=== PATIENT | female | born 1985 | race Caucasian/White ===

== ENCOUNTER 2019-12-12 17:46 | Emergency (ER) | payer OTHER, SELFPAY ==
--- NOTE | ~2019-12-12 | XR_ITS ---
EXAMINATION: XR hand RT min 3V INDICATION: Right hand pain TECHNIQUE: Three views of the right hand are obtained. COMPARISON: 06/28/2014 FINDINGS: There is no fracture, dislocation, or subluxation. The bones, soft tissues, and joint space s are normal. IMPRESSION: 1. No acute osseous abnormality. Reviewed, dictated and finalized at location A. PEMENT MATCHER
--- NOTE | 2019-12-12 17:53 | ED.UPPEXIN ---
HPI - Extremity Injury (Upper) General Chief Complaint: Extremity Injury, Upper Stated Complaint: R/hand injury Time Seen by Provider: 12/12/19 18:09 Source: patient and RN notes reviewed Mode of arrival: ambulatory Limitations: no limitations History of Present Illness HPI narrative: 34-year-Old female presents with concern for right hand injury. Reports she accidentally hit her hand on a wooden box prior to arrival. Reports pain near the fifth digit of the right hand. Denies any intervention for this pain. Denies bruising, reports mild swelling. MD complaint: injury to: right and hand Related Data Home Medications Medication Instructions Recorded Confirmed gabapentin 300 mg PO TID 08/30/19 08/30/19 aripiprazole 10 mg PO DAILY 09/14/19 09/14/19 duloxetine 20 mg PO DAILY 09/14/19 09/14/19 lamotrigine 75 mg PO DAILY 09/14/19 09/14/19 Allergies Allergy/AdvReac Type Severity Reaction Status Date / Time latex Allergy Unknown Unknown Verified 11/07/19 22:35 Contrast Media Allergy Intermediate Unknown Uncoded 11/07/19 22:35 Dairy Allergy Mild Unknown Uncoded 11/07/19 22:35 Review of Systems Review of Systems: Narrative: SKIN: Denies redness or bruising, reports swelling MUSCULOSKELETAL: Reports right hand pain NEUROLOGIC: Denies numbness, weakness All systems reviewed & are unremarkable except as noted in HPI and below PMFSH Social History Social History Gender identity (if verbalized by the patient): Female Comments At time of signature, agree with nursing past medical, surgical, social and family history. There is no relevant family history pertinent to the presenting complaint Exam Narrative: Exam Narrative: GENERAL: Well-appearing, well-nourished, and in no acute distress. HEAD: Normocephalic, atraumatic. EYES: PERRLA, conjunctivae clear NECK: Supple. CHEST: Speaks in full sentences. No respiratory distress. HEART: Regular rate and rhythm. Normal and equal peripheral pulses. EXTREMITIES: No cyanosis. Very mild superficial edema noted to the fifth digit of the right hand, tenderness to the fifth digit and below the digit of the right hand. Skin intact. Normal digital cascade with flexion of fingers, median, ulnar and radial nerve intact. Normal sensation of each side of finger. Can perform 'okay' sign, 'cross over finger test of index and middle fingers' and 'thumbs up' sign. No scissoring. 5/5 strength in digits 1, 2, and 3; 3/5 strength noted in digits 4 and 5. Normal thumb opposition. Good capillary refill and radial pulse. Wrist and hand ROM is normal. Decreased flexion in digits 3 and 4 SKIN: Warm, dry, no rash. NEURO: Alert and oriented x3. PSYCH: Normal mood and affect Course Course Emergency Course: Patient is aware of diagnosis, understands and agrees to treatment plan. Anticipatory guidance given. Patient agrees to follow-up as directed and is aware of reasons to seek care at the emergency department. Portions of this record may have been created with voice recognition software Vital Signs Vital signs: Vital Signs Temperature 98.3 F 12/12/19 17:59 Pulse Rate 79 12/12/19 17:59 Respiratory Rate 20 12/12/19 17:59 Blood Pressure 145/93 H 12/12/19 17:59 Pulse Oximetry 100 12/12/19 17:59 Temperature 98.3 F 12/12/19 17:59 Pulse Rate 79 12/12/19 17:59 Respiratory Rate 20 12/12/19 17:59 Blood Pressure 145/93 H 12/12/19 17:59 Pulse Oximetry 100 12/12/19 17:59 Reviewed. Patient has been instructed to follow up with her primary care provider within the next week regarding her elevated blood pressure today. MDM - Extremity Injury (Upper) MDM Narrative Medical decision making narrative: Patients injury and pain is consistent with musculoskeletal etiology. No signs of neurological or vascular compromise on exam. Compartments and tissues are soft without signs of compartment syndrome. Patient was instructed to seek fu
[2019-12-12 17:59] VITALS: BP 145/93; PULSE 79; RESP 20; TEMP 36.8; O2SAT 100
== END 2019-12-12 18:21 | disposition home or self-care (01) ==
PROVIDERS: Emergency Provider Nurse Practitioner
DX: S69.91XA Unspecified injury of right wrist, hand and finger(s), initial encounter (principal); W22.8XXA Striking against or struck by other objects, initial encounter; E03.9 Hypothyroidism, unspecified; G40.909 Epilepsy, unspecified, not intractable, without status epilepticus; F31.9 Bipolar disorder, unspecified
CPT/HCPCS: 73130; 99213; G0463

== ENCOUNTER 2020-01-19 14:14 | Emergency (ER) | payer OTHER, SELFPAY ==
[2020-01-19 14:26] VITALS: BP 104/69; PULSE 98; RESP 16; TEMP 37; O2SAT 100
--- NOTE | 2020-01-19 14:41 | ED.FEMALEGU ---
HPI - Female Genitourinary General Chief complaint: Urogenital-Female Stated complaint: UTI Time Seen by Provider: 01/19/20 14:41 Source: patient and RN notes reviewed History of Present Illness HPI Narrative: Patient is a 34-year-old female that presents the urgent care with complaints of a possible UTI. Patient states that symptoms started a few days ago with foul odor, urgency, frequency. Patient states that these are her typical symptoms for urinary tract infection . Patient denies any abdominal pain, dysuria, nausea, vomiting, fever. No other acute complaints. No acute distress noted. Patient read the plan of care. Related Data Allergies Allergy/AdvReac Type Severity Reaction Status Date / Time lactase Allergy Unknown Upset Verified 02/27/19 09:39 stomach latex Allergy Unknown Rash Verified 02/27/19 09:38 Review of Systems Review of Systems: Narrative: CONSTITUTIONAL: Denies fever, chills, or sweats. EYES: Denies visual changes, redness, or discharge. ENT: Denies rhinorrhea, congestion, sore throat, or otalgia. CARDIOVASCULAR: Denies chest pain, palpitations, or edema. RESPIRATORY: Denies cough or dyspnea. GASTROINTESTINAL: Denies abdominal pain, nausea, vomiting, or diarrhea. GENITOURINARY: Reports of urinary urgency and frequency with foul odor SKIN: Denies rash or itching. MUSCULOSKELETAL: Denies back pain, joint pain, or myalgia. NEUROLOGIC: Denies headache, numbness, or weakness. All other systems reviewed are negative, except as documented in HPI. REPLACED BY [facility] Family History Family History (Updated 02/27/19 @ 10:01 by DOCTOR UNKNOWN) Grandparent Diabetes mellitus Family history of blood dyscrasia Cerebrovascular accident Social History Social History Smoking status: Never smoker Second hand tobacco smoke exposure: No Alcohol intake: current Gender identity (if verbalized by the patient): Female Comments At the time of my signature, I reviewed and agree with the nursing past medical, surgical, social, and family history. There is no relevant family history pertinent to the patient complaint. Exam Narrative: Exam Narrative: GENERAL: This is a well-nourished, well-developed patient, in no apparent distress. HEAD: normocephalic, atraumatic. EYES: PERRL. Sclera clear/white. Vision is grossly intact. EARS: External ears normal NOSE: External nose normal with no obvious nasal discharge THROAT: Mucous membranes moist NECK: Neck supple CARDIOVASCULAR: Regular rate and rhythm without murmurs, gallops, or rubs. RESPIRATORY: Clear to auscultation. Breath sounds equal bilaterally. No wheezes, rales, or rhonchi. GASTROINTESTINAL: Abdomen soft, non-tender, nondistended. SKIN: warm, intact with no suspicious lesions or rash, good texture and turgor. NEURO: awake, alert, and oriented to person, place and time. There were no obvious focal neurologic abnormalities. EXTREMITIES: No clubbing, cyanosis, or edema. BACK: Negative bilateral CVA tenderness Course Vital Signs Vital signs: Vital Signs Temperature 98.6 F 01/19/20 14:26 Pulse Rate 98 01/19/20 14:26 Respiratory Rate 16 01/19/20 14:26 Blood Pressure 104/69 01/19/20 14:26 Pulse Oximetry 100 01/19/20 14:26 Temperature 98.6 F 01/19/20 14:26 Pulse Rate 98 01/19/20 14:26 Respiratory Rate 16 01/19/20 14:26 Blood Pressure 104/69 01/19/20 14:26 Pulse Oximetry 100 01/19/20 14:26 Reviewed MDM - Female Genitourinary MDM Narrative Medical decision making narrative: Reviewed UA results with the patient. She is aware that her urine analysis was positive for indicative UTI. Advised the patient to complete antibiotic regimen as prescribed. Make sure you are eating and drinking with the medication. Use Tylenol only as needed for pain. Increase water intake and avoid sugary and caffeinated drinks. Follow-up with PCP as necessary or for any worsening symptoms. Differential Diagnosis Differential diagnosis: Likely urina
== END 2020-01-19 14:56 | disposition home or self-care (01) ==
PROVIDERS: Emergency Provider Nurse Practitioner Family
DX: N39.0 Urinary tract infection, site not specified (principal)
CPT/HCPCS: 81003; 87077; 87086; 87088; 87186; 99213; G0463

== ENCOUNTER 2020-04-18 20:44 | Emergency (ER) | payer OTHER, SELFPAY ==
[2020-04-18 20:46] VITALS: BP 139/93; PULSE 93; RESP 18; TEMP 36.6; O2SAT 100
--- NOTE | 2020-04-18 21:36 | ED.HA ---
HPI - Headache General Chief Complaint: Headache Stated Complaint: migraine Time Seen by Provider: 04/18/20 21:20 Source: patient Mode of arrival: ambulatory Limitations: no limitations History of Present Illness HPI Narrative: This patient is a 35 year old female with history of migraine headaches who presents for treatment of her headache. She has had frontal throbbing headache for 4 days. She thought her headache had improved yesterday but it became worse today. She has associated light sensitivity with nausea. She denies no fever or chills. She has been taken tramadol and tylenol for her pain. This headache is typical for her migraines. MD elicited complaint: migraine Pertinent past history: migraines Related Data Allergies Allergy/AdvReac Type Severity Reaction Status Date / Time lactase Allergy Unknown Upset Verified 02/27/19 09:39 stomach latex Allergy Unknown Rash Verified 02/27/19 09:38 Review of Systems Review of Systems: All systems reviewed & are unremarkable except as noted in HPI and below Constitutional: Constitutional: Denies chills and Denies fever(s) Eyes: Eyes: Reports photophobia ENT: Denies dizziness and Denies nasal congestion Gastrointestinal: Gastrointestinal: Denies abdominal pain Neurologic: Denies vertigo, Denies syncope, Reports headache(s) and Denies focal weakness PMFSH Past Medical History Medical History (Updated 04/19/20 @ 00:00 by Constantine Rivera) Cataract Migraine Surgical History Surgical History (Updated 04/19/20 @ 05:20 by Gisel Roy MD) Hx of eye surgery Family History Family History (Updated 02/27/19 @ 10:01 by DOCTOR UNKNOWN) Grandparent Diabetes mellitus Family history of blood dyscrasia Cerebrovascular accident Social History Social History Smoking status: Never smoker Second hand tobacco smoke exposure: No Alcohol intake: current Gender identity (if verbalized by the patient): Female Exam Narrative: Exam Narrative: GENERAL: Well-appearing, well-nourished, and in no acute distress. HEAD: Normocephalic, atraumatic EYES: PERRLA and EOMI, conjunctiva clear without discharge EARS: TM's clear bilaterally without erythema or dullness NOSE: Nares clear, no rhinorrhea or epistaxis THROAT:Mucous membranes moist, Oropharynx normal without erythema, exudate, peritonsillar swelling or fluctuance NECK: Supple, without lymphadenopathy or mass RESPIRATORY: No respiratory distress, Airway patent, Respirations non-labored, Clear to auscultation without rales, rhonchi or wheeze HEART: Regular rate and rhythm. No murmur heard. Normal peripheral pulses. ABDOMEN: Soft, nontender, nondistended, normal active bowel sounds. No masses. No rebound or guarding, No organomegaly. EXTREMITIES: No edema, normal strength with full range of motion. SKIN: Warm, dry, normal color without rash NEURO: Alert and oriented x3. CN 2-12 grossly intact. No focal deficits. PSYCH: Normal mood and affect. Course Reevaluation(s) Reevaluation #1: Patient states she feels better and she is ready to go home to bed. Date: 04/18/20 Time: 22:51 Vital Signs Vital signs: Vital Signs Temperature 97.8 F 04/18/20 20:46 Pulse Rate 93 04/18/20 20:46 Respiratory Rate 18 04/18/20 20:46 Blood Pressure 139/93 H 04/18/20 20:46 Pulse Oximetry 100 04/18/20 20:46 Temperature 98.6 F 04/18/20 22:54 Pulse Rate 67 04/18/20 22:54 Respiratory Rate 19 04/18/20 22:54 Blood Pressure 115/74 04/18/20 22:54 Pulse Oximetry 100 04/18/20 22:54 Discharge Plan Discharge Clinical Impression: Migraine Patient Disposition: Home, Self-Care Condition: Stable Instructions: Antibiotic Form, Migraine Headache (ED), Acute Headache (ED) Prescriptions: New [id number] [Fioricet] 50-300-40 mg capsule 1 cap PO Q6H PRN (Reason: pain) Qty: 10 RF: 0 No Action nitrofurantoin monohyd/m-cryst [Macrobid] 100
[2020-04-18 21:44] VITALS: BP 114/70; PULSE 63; RESP 19; O2SAT 100
[2020-04-18] MEDS: METOCLOPRAMIDE HCL INJ 10 MG/2 ML VIAL IV PUSH (21:45)
[2020-04-18] MEDS: KETOROLAC 30 MG/ML VIAL (*BKC) IV PUSH (21:45)
[2020-04-18] MEDS: LACTATED RINGERS 1,000 ML 999 ML IV CONT (21:45)
[2020-04-18 22:25] VITALS: BP 133/64; PULSE 67; RESP 18; O2SAT 100
[2020-04-18 22:54] VITALS: BP 115/74; PULSE 67; RESP 19; TEMP 37; O2SAT 100
== END 2020-04-18 22:55 | disposition home or self-care (01) ==
PROVIDERS: Emergency Provider General Practice
DX: G43.909 Migraine, unspecified, not intractable, without status migrainosus (principal)
CPT/HCPCS: 96361; 96374; 96375; 99284; J1200; J1885; J2765; J7120

== ENCOUNTER 2020-05-16 07:13 | Emergency (ER) | payer OTHER, SELFPAY ==
--- NOTE | ~2020-05-16 | XR_ITS ---
EXAMINATION: XR chest 1V portable INDICATION: Cough and shortness of breath TECHNIQUE: Portable AP chest at 0754 hours COMPARISON: 02/12/2018 FINDINGS: The lungs are free of acute opacities. There is no pleural effusion or pneumothorax. The ca rdiomediastinal silhouette is normal. The visualized bones and soft tissues are unremarkable. Cholecy stectomy clips are noted in the right upper quadrant. IMPRESSION: 1. No acute cardiopulmonary abnormality. Reviewed, dictated and finalized at location A.
[2020-05-16 07:18] VITALS: BP 135/85; PULSE 115; RESP 24; TEMP 36.4; O2SAT 98
[2020-05-16 07:21] VITALS: PULSE 116; O2SAT 98
--- NOTE | 2020-05-16 07:30 | ED.SOB ---
HPI - SOB/Dyspnea General Chief Complaint: Shortness of Breath/Dyspnea Stated Complaint: SOB Time Seen by Provider: 05/16/20 07:29 Source: patient Mode of arrival: ambulatory Limitations: no limitations History of Present Illness HPI Narrative: Patient is a 35-year-old female who presents for evaluation of shortness of breath. Patient reports a history of asthma, states she has been using her albuterol inhaler without much improvement in her symptoms. She states she has had worsening shortness of breath over the past day, but especially worse this morning. Patient states she has had a productive cough which is atypical from a usual asthma exacerbation. She denies fever. She denies any chest pain, she reports that her muscles feel a bit sore from coughing. She denies leg swelling or pain. No recent sick contacts. No recent travel. Related Data Home Medications Medication Instructions Recorded Confirmed albuterol sulfate INHALATION 05/16/20 Allergies Allergy/AdvReac Type Severity Reaction Status Date / Time lactase Allergy Unknown Upset Verified 05/16/20 07:23 stomach latex Allergy Unknown Rash Verified 05/16/20 07:23 Iodinated Contrast Media AdvReac Nausea and Verified 05/16/20 07:23 Vomiting Review of Systems Review of Systems: Narrative: CONSTITUTIONAL: Denies fever CARDIOVASCULAR: Denies chest pain RESPIRATORY: Reports cough and shortness of breath GASTROINTESTINAL: Denies abdominal pain SKIN: Denies rash MUSCULOSKELETAL: Denies back pain NEUROLOGIC: Denies headache PMFSH Past Medical History Medical History Asthma Cataract Migraine Surgical History Surgical History Hx of eye surgery Family History Family History (Updated 02/27/19 @ 10:01 by DOCTOR UNKNOWN) Grandparent Diabetes mellitus Family history of blood dyscrasia Cerebrovascular accident Social History Social History (Updated 05/16/20 @ 07:39 by Ariadna Jack MD) Smoking status: Current every day smoker Tobacco type: cigarettes Second hand tobacco smoke exposure: No Alcohol intake: current Gender identity (if verbalized by the patient): Female Exam Narrative: Exam Narrative: GENERAL: Awake, alert, conversant HEAD: Normocephalic, atraumatic. EYES: PERRLA and EOMI. ENT: Nares clear, no rhinorrhea or epistaxis. Mucous membranes moist. NECK: Supple. CHEST: Tachypnea, mild to moderate respiratory distress, no hypoxemia, mild use of abdominal accessory muscles to breathe, coarse breath sounds bilaterally, expiratory wheezing bilaterally HEART: Tachycardic rate, sinus rhythm ABDOMEN:Non distended, non tender EXTREMITIES: Normal range of motion. No edema. SKIN: Warm, dry, no rash. NEURO:No focal deficits. Alert and oriented x3 Course Vital Signs Vital signs: Vital Signs Temperature 36.4 C L 05/16/20 07:18 Pulse Rate 115 H 05/16/20 07:18 Respiratory Rate 24 H 05/16/20 07:18 Blood Pressure 135/85 05/16/20 07:18 Pulse Oximetry 98 05/16/20 07:18 Temperature 36.4 C L 05/16/20 07:18 Pulse Rate 116 H 05/16/20 09:25 Respiratory Rate 19 05/16/20 09:25 Blood Pressure 101/65 05/16/20 09:25 Pulse Oximetry 100 05/16/20 09:25 MDM - SOB/Dyspnea MDM Narrative Medical decision making narrative: Patient presented for evaluation of shortness of breath. At the time of assessment, patient in mild to moderate respiratory distress, tachycardic, tachypneic, wheezing. IV access obtained, labs are drawn. Given patient's history of asthma, this does seem most consistent with an asthma exacerbation. Wanted to ensure no community-acquired pneumonia or COVID type features, thus obtain chest x-ray which showed no acute cardiopulmonary abnormality, no consolidations or infiltrates. Patient was given IV fluids,continuous DuoNeb treatment, magnesium, steroids and had much improvement in
[2020-05-16] MEDS: ALBUTEROL SULFATE NEB 2.5 MG/0.5 ML INH 20 MG INHALATION (07:51)
[2020-05-16] MEDS: IPRATROPIUM BR 0.02% INH SOLN 0.5 MG/2.5 ML VIAL 2 MG INHALATION (07:51)
[2020-05-16 07:56] VITALS: PULSE 103; RESP 17
[2020-05-16] MEDS: MAGNESIUM SULF 2 GM/WATER 50ML 2 GM/50 ML BAG IVPB (08:01)
[2020-05-16] MEDS: methylPREDNISolone SOD SUCC 125 MG VIAL IV PUSH (08:01)
[2020-05-16] MEDS: SODIUM CHLORIDE 0.9% IV 1,000 ML 999 ML IV CONT (08:01)
[2020-05-16 08:39] VITALS: BP 109/70; PULSE 105; RESP 19; O2SAT 100
[2020-05-16 08:50] LABS: Basophils Absolute Auto 0.1 K/mm3 (0.0-0.1); Basophils Percent Auto 0.7 % (0.2-1.2); Eosinophils Absolute Auto 0.6 K/mm3 (0-0.3); Eosinophils Percent Auto 8.2 % (0-4.4); Hematocrit 45.9 % (37.0-47.0); Hemoglobin 15.6 g/dL (12.0-15.0); Immature Granulocyte Absolute 0.02 K/mm3 (0.00-0.031); Immature Granulocyte Percent A 0.3 % (0-0.5); Lymphocytes Absolute Auto 1.57 K/mm3 (0.9-3.2); Lymphocytes Percent Auto 21.7 % (18.3-44.2); Mean Corpuscular Hemoglobin 32.4 pg (26-34); Mean Corpuscular Volume 95.2 fl (80-100); Mean Platelet Volume 9.8 fl (7.4-10.4); Monocytes Absolute Auto 1.5 K/mm3 (0.1-0.6); Monocytes Percent Auto 20.7 % (2.6-8.5); Neutrophils Absolute Auto 3.5 K/mm3 (1.3-6.7); Neutrophils Percent Auto 48.4 % (45.5-73.1); Platelet Count Result 374 k/mm3 (150-375); Red Blood Count 4.82 M/mm3 (4.2-5.4); Red Cell Distribution Width 13.9 % (11.5-14.5); White Blood Count 7.2 K/mm3 (4.5-10.0)
[2020-05-16 09:04] LABS: Blood Urea Nitrogen 16 mg/dL (7-17); Calcium 8.9 mg/dL (8.4-10.2); Carbon Dioxide 24 mmol/L (22-30); Chloride 103 mmol/L (98-107); Estimated CRCL calculation 84 ml/min; Estimated Glomerular Filt Rate > 60; Glucose 86 mg/dL (65-105); Potassium 3.9 mmol/L (3.4-5.0); Sodium 136 mmol/L (137-145)
[2020-05-16 09:10] VITALS: PULSE 111; RESP 22
[2020-05-16 09:25] VITALS: BP 101/65; PULSE 116; RESP 19; O2SAT 100
== END 2020-05-16 10:17 | disposition home or self-care (01) ==
PROVIDERS: Emergency Provider Emergency Medicine
DX: J45.901 Unspecified asthma with (acute) exacerbation (principal); F17.210 Nicotine dependence, cigarettes, uncomplicated
CPT/HCPCS: 36415; 71045; 80048; 85025; 94640; 96365; 96375; 99284; J2930; J3475; J7030

== ENCOUNTER 2020-12-15 14:49 | Emergency (ER) | payer OTHER, SELFPAY ==
--- NOTE | 2020-12-15 14:58 | ED.SKABFB ---
HPI - Skin/Abscess/Foreign Bdy General Chief complaint: Skin/Abscess/Foreign Body Stated complaint: cyst on right arm Time Seen by Provider: 12/15/20 14:59 Source: patient and RN notes reviewed Mode of arrival: ambulatory Limitations: no limitations History of Present Illness HPI narrative: 35-year-old female presents concern for an abscess in her right axilla. Reports that area has been there for approximately 1 year, has recently gotten larger, tenderness started to drain. Denies any history of similar instance like this in the past, denies body aches, chills, sweats, fever. Reports the pain is starting to migrate down her right upper arm. MD complaint: abscess/boil Related Data Allergies Allergy/AdvReac Type Severity Reaction Status Date / Time latex Allergy Unknown Unknown Verified 11/07/19 22:35 Contrast Media Allergy Intermediate Unknown Uncoded 11/07/19 22:35 Dairy Allergy Mild Unknown Uncoded 11/07/19 22:35 Review of Systems Review of Systems: Narrative: CONSTITUTIONAL: Denies malaise, chills, sweats, or fever. CARDIOVASCULAR: Denies chest pain, palpitations, or edema. RESPIRATORY: Denies dyspnea. GASTROINTESTINAL: Denies nausea, vomiting, diarrhea SKIN: Reports abscess in the right axilla MUSCULOSKELETAL: Denies myalgia. NEUROLOGIC: Denies numbness, weakness. All systems reviewed & are unremarkable except as noted in HPI and below PMFSH Past Medical History Medical History (Updated 12/15/20 @ 15:02 by Charlene Bajwa NP) PID (acute pelvic inflammatory disease) Trichomonas contact, treated Surgical History Surgical History History of hysterectomy Social History Social History Gender identity (if verbalized by the patient): Female Comments At time of signature, agree with nursing past medical, surgical, social and family history. There is no relevant family history pertinent to the presenting complaint Exam Narrative: Exam Narrative: GENERAL: Well-appearing, well-nourished, and in no acute distress. HEAD: Normocephalic EYES: PERRLA, conjunctivae clear ENT: Mucous membranes moist. NECK: Supple. No lymphadenopathy. CHEST: No respiratory distress.Speaks in full sentences. HEART: Regular rate and rhythm. Normal peripheral pulses. EXTREMITIES: Grossly normal range of motion, no edema, gross normal strength and sensation. SKIN: Warm, dry, no rash. 2 cm diameter palpable, fluctuant abscess noted in the right axilla not surrounded by erythema, edema or induration. Small amount of drainage noted. NEURO: Alert and oriented x3. PSYCH: Normal mood and affect Course Course Emergency Course: Patient is aware of diagnosis, understands and agrees to treatment plan. Anticipatory guidance given. Patient agrees to follow-up as directed and is aware of reasons to seek care at the emergency department. Portions of this record may have been created with voice recognition software Vital Signs Vital signs: Vital Signs Temperature 98.2 F 12/15/20 14:59 Pulse Rate 102 H 12/15/20 14:59 Respiratory Rate 18 12/15/20 14:59 Blood Pressure 116/77 12/15/20 14:59 Pulse Oximetry 100 12/15/20 14:59 Temperature 98.2 F 12/15/20 14:59 Pulse Rate 102 H 12/15/20 14:59 Respiratory Rate 18 12/15/20 14:59 Blood Pressure 116/77 12/15/20 14:59 Pulse Oximetry 100 12/15/20 14:59 Reviewed. Procedures Abscess I/D upper extremity: Date of Incision: 12/15/20 Time of Incision: 15:06 Side (if applicable): right Local Anesthetic: lidocaine 1% Amount of anesthesia used (mL): 2 Technique: incised with #11 blade Amount of fluid expressed (mL): 3 Packing used?: none I&D Results: Pus MDM - Skin/Abscess/Foreign Bdy MDM Narrative Medical decision making narrative: Verbal consent were obtained. The indication for the procedure was clinical suspi
[2020-12-15 14:59] VITALS: BP 116/77; PULSE 102; RESP 18; TEMP 36.8; O2SAT 100
--- NOTE | 2020-12-15 15:10 | PC.NURSE ---
I & D to right axillia by Charlene Bajwa [employer]ZING END BANDER
== END 2020-12-15 15:25 | disposition home or self-care (01) ==
PROVIDERS: Emergency Provider Nurse Practitioner
DX: L02.411 Cutaneous abscess of right axilla (principal); E03.9 Hypothyroidism, unspecified
CPT/HCPCS: 10060; 87075; 99213; G0463

== ENCOUNTER 2021-03-18 08:57 | Outpatient (CLI) | payer OTHER, SELFPAY ==
--- NOTE | 2021-03-18 11:30 | NEURO_ITS ---
Impression: # Complains of numbness of both hands. # No Carpal Tunnel Syndrome or ulnar neuropathy. # Normal nerve conduction study. # Normal needle/EMG exam. Nerve Conduction Studies Anti Sensory Summary Table Stim Site NR Peak (ms) P-T Amp (?V) Site1 Site2 Delta-P (ms) Dist (cm) Shoaib (m/s) Left Median Anti Sensory (2-3nd Digit) Wrist 2.8 56.9 Wrist 2-3nd Digit 2.8 14.0 50 Wrist 2.9 59.9 Wrist 2-3nd Digit 2.8 14.0 50 Right Median Anti Sensory (2-3nd Digit) Wrist 2.9 55.6 Wrist 2-3nd Digit 2.9 14.0 48 Wrist 2.7 58.4 Wrist 2-3nd Digit 2.9 14.0 48 Left Radial Anti Sensory (Base 1st Digit) Wrist 1.8 43.4 Wrist Base 1st Digit 1.8 0.0 Right Radial Anti Sensory (Base 1st Digit) Wrist 1.7 48.8 Wrist Base 1st Digit 1.7 0.0 Left Ulnar Anti Sensory (5th Digit) Wrist 2.4 46.4 Wrist 5th Digit 2.4 14.0 58 Right Ulnar Anti Sensory (5th Digit) Wrist 2.2 76.8 Wrist 5th Digit 2.2 14.0 64 Motor Summary Table Stim Site NR Onset (ms) O-P Amp (mV) Site1 Site2 Delta-0 (ms) Dist (cm) Shoaib (m/s) Left Median Motor (Abd Poll Brev) Wrist 2.7 1.3 Elbow Wrist 4.4 26.0 59 Elbow 7.1 4.0 Right Median Motor (Abd Poll Brev) Wrist 3.0 6.1 Elbow Wrist 4.5 25.0 56 Elbow 7.5 2.5 Left Ulnar Motor (Abd Dig Minimi) Wrist 2.4 7.4 A Elbow Wrist 5.3 27.0 51 A Elbow 7.7 5.9 B Elbow Wrist 3.8 20.0 53 B Elbow 6.2 6.7 Right Ulnar Motor (Abd Dig Minimi) Wrist 2.5 8.1 A Elbow Wrist 4.7 26.0 55 A Elbow 7.2 6.7 F Wave Studies NR F-Lat (ms) L-R F-Lat (ms) Left Median (Mrkrs) (Abd Poll Brev) 24.80 0.47 Right Median (Mrkrs) (Abd Poll Brev) 25.26 0.47 Left Ulnar (Mrkrs) (Abd Dig Min) 25.28 0.55 Right Ulnar (Mrkrs) (Abd Dig Min) 24.73 0.55 EMG Side Muscle Nerve Root Ins Act Fibs Amp Dur Recrt Comment Right 1stDorInt Ulnar C8-T1 Nml Nml Nml Nml Nml Right Ext Indicis Radial (Post Int) C7-8 Nml Nml Nml Nml Nml Right Ext Digitorum Radial (Post Int) C7-8 Nml Nml Nml Nml Nml Right BrachioRad Radial C5-6 Nml Nml Nml Nml Nml Right PronatorTeres Median C6-7 Nml Nml Nml Nml Nml Right Abd Poll Brev Median C8-T1 Nml Nml Nml Nml Nml Left 1stDorInt Ulnar C8-T1 Nml Nml Nml Nml Nml Left Ext Indicis Radial (Post Int) C7-8 Nml Nml Nml Nml Nml Left Ext Digitorum Radial (Post Int) C7-8 Nml Nml Nml Nml Nml Left BrachioRad Radial C5-6 Nml Nml Nml Nml Nml Left PronatorTeres Median C6-7 Nml Nml Nml Nml Nml Left Abd Poll Brev Median C8-T1 Nml Nml Nml Nml Nml MTDD
== END 2021-03-18 08:58 | disposition home or self-care (01) ==
PROVIDERS: Visit Provider Plastic Surgery
DX: R20.0 Anesthesia of skin (principal); R53.83 Other fatigue; M79.632 Pain in left forearm; M79.631 Pain in right forearm
CPT/HCPCS: 95886; 95911

== ENCOUNTER 2021-05-13 17:26 | Emergency (ER) | payer OTHER, SELFPAY ==
--- NOTE | ~2021-05-13 | CT_ITS ---
EXAMINATION: CT brain wo con DATE: 05/13/2021 19:03 INDICATION: 3 episodes of seizure. Fall. TECHNIQUE: Computed tomography (CT) of the head was performed without intravenous contrast. Sagittal and coronal reconstructions were performed. The mA was adjusted according to patient size. Iterative reconstruction technique was employed. The dose-length product was 1210.67 mGy-cm. COMPARISON: head CT dated 11/07/2019 FINDINGS: No fracture. No acute intracranial hemorrhage, acute infarction or abnormal extra axial fluid collect ion. Ventricles are normal and symmetric. No mass/mass effect. The orbits, paranasal sinuses and mast oid air cells are normal. IMPRESSION: 1. Normal head CT. No fracture or acute intracranial process. Reviewed, dictated and finalized at location A.
--- NOTE | ~2021-05-13 | CT_ITS ---
EXAMINATION: CT lumbar spine wo con DATE: 05/13/2021 19:03 INDICATION: Low back pain post fall TECHNIQUE: Computed tomography (CT) of the lumbar spine was performed without intravenous contrast. A utomated exposure control and iterative reconstruction technique were employed. The dose-length produ ct was 1210.67 mGy-cm. COMPARISON: None FINDINGS: Minimal lower lumbar levocurvature. Alignment is normal. Vertebral body heights are normal. No fractu re. Mild right-sided disc height loss at L4-L5. Mild disc bulges at L3-L4, L4-L5 and L5-S1 result in mild central canal stenosis at L4-L5 and minimal stenosis at L3-L4 and L5-S1. Severe facet osteoarthr itis on the right at L4-L5. Minimal to mild facet osteoarthritis at the remaining lumbar levels on moreno th the left and right. Mild bilateral neural foraminal stenosis at L4-L5. L4 bone island. Cholecystec jermaine clips at the gallbladder fossa. Paravertebral soft tissues are unremarkable. IMPRESSION: 1. Mild lumbar spondylosis. No acute osseous abnormality. Reviewed, dictated and finalized at location A.
--- NOTE | ~2021-05-13 | CT_ITS ---
EXAMINATION: CT facial bones wo con DATE: 05/13/2021 19:03 INDICATION: Fall with facial injury and right periorbital bruising TECHNIQUE: Computed tomography (CT) of the facial bones and maxillofacial region was performed withou t intravenous contrast. Coronal reconstructions were obtained. Automated exposure control and iterati ve reconstruction technique were employed. The dose-length product was 1210.67 mGy-cm. COMPARISON: None. FINDINGS: No maxillofacial fractures. Specifically the kay of the orbits and paranasal sinuses, the mandible, zygomatic arches and pterygoid plates are intact. Temporomandibular joints are in normal alignment. Suggestion of right intraocular lens replacement which would be atypical for age. Correlate with clin ical/surgical history. Orbits are otherwise normal. Mild mucosal thickening along the right frontoeth moidal recess visualized portions of the mastoid air cells and middle ear cavities are clear. Maxillo facial soft tissues are unremarkable. IMPRESSION: 1. No maxillofacial fractures. Reviewed, dictated and finalized at location A.
[2021-05-13 17:25] VITALS: BP 160/118; PULSE 101; RESP 24; TEMP 36.8; O2SAT 98
--- NOTE | 2021-05-13 17:32 | ECG_ITS ---
Measurements Intervals Mccune Rate: 106 P: 66 FL: 115 QRS: 54 QRSD: 86 T: 61 QT: 344 QTc: 457 Interpretive Statements SINUS TACHYCARDIA WITH SHORT FL INTERVAL BASELINE ARTIFACT- II, III, AVR, AVL, AVF, V1, V3-V6 ABNORMAL ECG Electronically Signed On 05-13-2021 20:17:23 CDT by Herman Mast D.O.
[2021-05-13 17:33] VITALS: PULSE 111
--- NOTE | 2021-05-13 18:04 | ED.SEIZURE ---
HPI - Seizure General Chief Complaint: Seizure Stated Complaint: Seizures Time Seen by Provider: 05/13/21 17:53 Source: RN notes reviewed History of Present Illness HPI Narrative: Patient presents emergency department from home via EMS for seizures. Patient states that she had a tonic-clonic seizure at home and fell out of bed. She states she struck the right side of her face and her head as well as pain in her lower back from falling out of bed. She states she has a history of seizure disorders but does not currently follow with a neurologist and does not have any regular seizure medicine she states she is had seizures for over the past 3 and half years and is had more seizures than she can count. She states at one point she is on gabapentin but no longer is on any medication she denies any recent illness denies any fevers or chills, chest pain shortness of breath or any other symptoms Seizure History: Yes Related Data Allergies Allergy/AdvReac Type Severity Reaction Status Date / Time lactase Allergy Unknown Upset Verified 05/13/21 17:34 stomach latex Allergy Unknown Unknown Verified 05/13/21 17:34 Iodinated Contrast Media AdvReac Nausea and Verified 05/13/21 17:34 Vomiting Contrast Media Allergy Intermediate Unknown Uncoded 05/13/21 17:34 Dairy Allergy Mild Unknown Uncoded 05/13/21 17:34 Review of Systems Review of Systems: Narrative: Gen.: Denies fevers or chills Eyes: Denies eye pain or visual change ENT: Denies congestion Respiratory: Denies shortness of breath or cough CV: Denies chest pain or palpitations GI: Denies abdominal pain nausea, emesis or diarrhea denies burning, urgency, frequency or hematuria Musculoskeletal: See HPI Neuro: Reports seizure Skin: Denies rash Except as documented, all other systems reviewed and negative [facility] Past Medical History Medical History (Updated 05/13/21 @ 21:15 by Rodrigo Solorzano DO) Asthma Cataract Migraine PID (acute pelvic inflammatory disease) Seizure disorder Trichomonas contact, treated Surgical History Surgical History (System 12/25/20 @ 11:19 by Anisha Shah) History of hysterectomy Hx of eye surgery Family History Family History (System 12/25/20 @ 11:19 by Anisha Shah) Grandparent Diabetes mellitus Family history of blood dyscrasia Cerebrovascular accident Social History Social History Smoking status: Current every day smoker Tobacco type: cigarettes Second hand tobacco smoke exposure: No Alcohol intake: current Gender identity (if verbalized by the patient): Female Exam Narrative: Exam Narrative: APPEARANCE: No acute distress, nontoxic, resting in bed EYES: PERRL, EOMI HEENT: Normocephalic, tender palpation over the right cheek and right side of the head nares patent or mucosa moist Neck: Supple no midline tenderness palpation full range of motion without pain RESPIRATORY: No respiratory distress Clear to auscultation bilaterally with no rhonchi wheezing or rales. CARDIOVASCULAR: Regular rate and rhythm without murmurs rubs or gallops. ABDOMINAL: Soft, nontender, nondistended, no rebound or guarding MUSCULOSKELETAl: Moves all extremities. No clubbing, cyanosis or edema. Back: No midline thoracic lumbar consult patient tender palpation bilateral paravertebral muscles L3-5 NEURO: Awake and alert x 4. Following commands, speech normal, no focal deficits SKIN:: Warm, dry. No rashes lesions or abrasions PSYCHIATRIC: Normal affect/mood, Course Course Emergency Course: Patient refusing to give urine in ED requested several times Called and discussed Dr. Gresham presentation work-up recommends patient loaded with Keppra 1000 mg and started on Keppra 500 mg twice daily Discussed with patient results of workup and diagnosis. Discussed need for follow-up with primary care, proper use of medication, and reasons to return to the emergency department. Patient u
--- NOTE | 2021-05-13 18:19 | PC.NURSE ---
Patient unable to give urine sample at this time, patient refusing to give urine and refusing straight cath at this time. Patient reports I don't have a uterus, I am not .
[2021-05-13] MEDS: SODIUM CHLORIDE 0.9% IV 1,000 ML 999 ML IV CONT (18:23)
[2021-05-13 18:27] LABS: Basophils Percent Auto 0.5 % (0.2-1.2); Eosinophils Absolute Auto 0.2 K/mm3 (0-0.3); Eosinophils Percent Auto 2.4 % (0-4.4); Hematocrit 39.5 % (37.0-47.0); Hemoglobin 13.1 g/dL (12.0-15.0); Immature Granulocyte Absolute 0.02 K/mm3 (0.00-0.031); Immature Granulocyte Percent A 0.2 % (0-0.5); Lymphocytes Absolute Auto 1.82 K/mm3 (0.9-3.2); Lymphocytes Percent Auto 20.8 % (18.3-44.2); Mean Corpuscular HGB Conc 33.2 g/dl (32-36); Mean Corpuscular Hemoglobin 32.1 pg (26-34); Mean Corpuscular Volume 96.8 fl (80-100); Monocytes Absolute Auto 1.1 K/mm3 (0.1-0.6); Monocytes Percent Auto 12.1 % (2.6-8.5); Neutrophils Absolute Auto 5.6 K/mm3 (1.3-6.7); Platelet Count Result 331 k/mm3 (150-375); Red Blood Count 4.08 M/mm3 (4.2-5.4); Red Cell Distribution Width 13.3 % (11.5-14.5); White Blood Count 8.8 K/mm3 (4.5-10.0)
[2021-05-13 18:38] LABS: Ethanol < 10 mg/dL (<10)
[2021-05-13 18:39] LABS: Alanine Aminotransferase 19 U/L (4-35); Albumin Level 3.8 g/dL (3.5-5.1); Alkaline Phosphatase 73 U/L (38-126); Anion Gap 5 mmol/L (8-16); Aspartate Amino Transferase 23 U/L (14-36); Bilirubin,Total 0.3 mg/dL (0.2-1.3); Blood Urea Nitrogen 8 mg/dL (7-17); Calcium 8.8 mg/dL (8.4-10.2); Carbon Dioxide 23 mmol/L (22-30); Chloride 110 mmol/L (98-107); Estimated CRCL calculation 98 ml/min; Estimated Glomerular Filt Rate > 60; Glucose 94 mg/dL (65-105); Potassium 3.9 mmol/L (3.4-5.0); Sodium 138 mmol/L (137-145)
--- NOTE | 2021-05-13 18:40 | PC.NURSE ---
Patient still unable to give urine sample and declines straight cath at this time.
[2021-05-13 18:46] LABS: Prothrombin Time 12.8 Seconds (11.1-14.7)
[2021-05-13 18:48] LABS: Partial Thromboplastin Time 28.6 SECONDS (22.3-36.8)
[2021-05-13 19:07] VITALS: BP 133/104; PULSE 91; RESP 21
--- NOTE | 2021-05-13 20:04 | PC.NURSE ---
Belongings dropped off by pt's boyfriend: darshana, hyster driver's license, gag of toiletries.
[2021-05-13 20:20] VITALS: BP 130/90; PULSE 93; RESP 16; O2SAT 98
--- NOTE | 2021-05-13 20:22 | PC.NURSE ---
Pt unable to provide urine sample at this time. Pt continues to refuse straight catheter.
[2021-05-13] MEDS: levETIRAcetam 1000MG/NACL100ML 1,000 MG/100 ML BAG 400 MG IVPB (20:34)
--- NOTE | 2021-05-13 20:42 | PC.NURSE ---
Note from visitor in lobby brought to pt per request.
--- NOTE | 2021-05-13 21:02 | PC.NURSE ---
Pt unable to void for test per request of doc. Pt states that she had a partial hysterectomy. Refusing to attempt to provide urine sample. ERP made aware.
[2021-05-13] MEDS: KETOROLAC 30 MG/ML VIAL (*BKC) IV PUSH (21:07)
[2021-05-13 21:37] VITALS: BP 115/78; PULSE 95; RESP 18; O2SAT 98
== END 2021-05-13 21:45 | disposition home or self-care (01) ==
PROVIDERS: Emergency Provider Emergency Medicine
DX: G40.909 Epilepsy, unspecified, not intractable, without status epilepticus (principal); S39.92XA Unspecified injury of lower back, initial encounter; S00.93XA Contusion of unspecified part of head, initial encounter; J45.909 Unspecified asthma, uncomplicated; F17.210 Nicotine dependence, cigarettes, uncomplicated; M47.816 Spondylosis without myelopathy or radiculopathy, lumbar region; R00.0 Tachycardia, unspecified; W06.XXXA Fall from bed, initial encounter
CPT/HCPCS: 36415; 70450; 70486; 72131; 80053; 80307; 85025; 85610; 85730; 93005; 96361; 96365; 96375; 99285; J0131; J1885; J1953; J7030

== ENCOUNTER 2021-12-02 15:43 | Emergency (ER) | payer OTHER, SELFPAY ==
[2021-12-02 16:00] VITALS: BP 128/76; PULSE 93; RESP 18; TEMP 36.8; O2SAT 100
--- NOTE | 2021-12-02 16:14 | ED.FEMALEGU ---
HPI - Female Genitourinary General Chief complaint: Urogenital-Female Stated complaint: Female Urogenital History of Present Illness HPI Narrative: 36-year-old female who presents to [facility] with complaints of continued urinary frequency and urgency after being treated with Bactrim DS about 1 1/2 weeks ago which she received from [facility]. Patient reports that she also has thick, white vaginal discharge that is itchy for the past 2 days. Patient has not taken any OTC medications for her discharge. Patient denies any concern for STD's at this time. Patient denies any abdominal pain or any CVA tenderness, states no burning with urination. Related Data Allergies Allergy/AdvReac Type Severity Reaction Status Date / Time lactase Allergy Mild Upset Verified 12/02/21 16:08 stomach latex Allergy Mild Hives Verified 12/02/21 16:08 Iodinated Contrast Media AdvReac Intermediate Nausea and Verified 12/02/21 16:08 Vomiting Contrast Media Allergy Intermediate Nausea and Uncoded 12/02/21 16:08 Vomiting Dairy Allergy Mild Gastrointestinal Uncoded 12/02/21 16:08 Upset Review of Systems Review of Systems: CONSTITUTIONAL: Denies fever, chills, or sweats. EYES: Denies visual changes, redness, or discharge. ENT: Denies rhinorrhea, congestion, sore throat, or otalgia. CARDIOVASCULAR: Denies chest pain, palpitations, or edema. RESPIRATORY: Denies cough or dyspnea. GASTROINTESTINAL: Denies abdominal pain, nausea, vomiting, or diarrhea. GENITOURINARY: Denies dysuria or hematuria.reports urinary frequency and urgency continues and also thick white vaginal discharge with itching. SKIN: Denies rash or itching. MUSCULOSKELETAL: Denies back pain, joint pain, or myalgia. NEUROLOGIC: Denies headache, numbness, or weakness. PSYCHIATRIC: Denies anxiety or depression. All systems reviewed & are unremarkable except as noted in HPI and below PMFSH Past Medical History Medical History (Updated 12/02/21 @ 16:34 by Ariadna De La Cruz NP) Asthma Cataract Migraine PID (acute pelvic inflammatory disease) Seizure disorder Trichomonas contact, treated Surgical History Surgical History (Updated 12/02/21 @ 16:16 by Ariadna De La Cruz NP) History of appendectomy History of cholecystectomy History of hysterectomy Hx of eye surgery Family History Family History Grandparent Diabetes mellitus Family history of blood dyscrasia Cerebrovascular accident Social History Social History Smoking status: Current every day smoker Tobacco type: cigarettes Second hand tobacco smoke exposure: No Alcohol intake: current Gender identity (if verbalized by the patient): Female Comments At time of signature, agree with nursing past medical, surgical, social and family history. There is no relevant family history pertinent to the presenting complaint Exam Narrative: GENERAL: Well-appearing, well-nourished, and in no acute distress. HEAD: Normocephalic, atraumatic. EYES: PERRLA and EOMI. ENT: Nares clear, no rhinorrhea or epistaxis. Mucous membranes moist.TM's normal with good light reflex,throat pink with no lesions, exudates or tonsil enlargement. NECK: Supple. no lymphadenopathy CHEST: Clear to auscultation. No respiratory distress.SAO2 100% on room air HEART: Regular rate and rhythm. No murmur heard. Normal peripheral pulses. ABDOMEN: Soft, nontender to palpation, nondistended, normal active bowel sounds. No CVA tenderness EXTREMITIES: Normal range of motion. No edema. SKIN: Warm, dry, no rash. NEURO: No focal deficits. Alert and oriented x3. Course Course Level of Care: Express Care Visit Vital Signs Vital signs: Vital Signs Temperature 36.8 C 12/02/21 16:00 Pulse Rate 93 12/02/21 16:00 Respiratory Rate 18 12/02/21 16:00 Blood Pressure 128/76 12/02/21 16:00 Pulse Oximetry 100 12/02/21 16:00
== END 2021-12-02 16:40 | disposition home or self-care (01) ==
PROVIDERS: Emergency Provider Registered Nurse
DX: B37.3 Candidiasis of vulva and vagina (principal); R39.15 Urgency of urination; J45.909 Unspecified asthma, uncomplicated; F17.210 Nicotine dependence, cigarettes, uncomplicated; H26.9 Unspecified cataract
CPT/HCPCS: 81003; 87086; 99213; G0463

== ENCOUNTER 2022-03-09 04:36 | Emergency (ER) | payer OTHER, SELFPAY ==
--- NOTE | ~2022-03-09 | XR_ITS ---
EXAMINATION: XR foot LT min 3V DATE: 03/09/2022 05:55 INDICATION: Left foot pain TECHNIQUE: Dorsoplantar, lateral, and oblique views of the left foot were obtained. COMPARISON: None. FINDINGS: There is no fracture, dislocation, or subluxation. The bones, soft tissues, and joint space s are normal. IMPRESSION: 1. No acute osseous abnormality. Reviewed, dictated and finalized at location A.
--- NOTE | ~2022-03-09 | XR_ITS ---
EXAMINATION: XR tibia fibula LT 2V INDICATION: Left leg pain TECHNIQUE: Two views of the left tibia and fibula are obtained. COMPARISON: None FINDINGS: There is no fracture, dislocation, or subluxation. The bones, soft tissues, and joint space s are normal. IMPRESSION: 1. No acute osseous abnormality. Reviewed, dictated and finalized at location A.
--- NOTE | ~2022-03-09 | XR_ITS ---
EXAMINATION: XR ankle LT min 3V DATE: 03/09/2022 05:55 INDICATION: Left ankle pain TECHNIQUE: Three views of the left ankle are obtained.. COMPARISON: None. FINDINGS: There is no fracture, dislocation, or subluxation. The bones, soft tissues, and joint space s are normal. IMPRESSION: 1. No acute osseous abnormality. Reviewed, dictated and finalized at location A.
--- NOTE | ~2022-03-09 | XR_ITS ---
EXAMINATION: XR knee LT 3V DATE: 03/09/2022 05:55 INDICATION: Left knee pain TECHNIQUE: Three views of the left knee were obtained. COMPARISON: None. FINDINGS: Alignment is normal. No fracture or osteochondral lesion. Joint spaces are normal with no e rosions. No joint effusion/synovitis. Soft tissues are unremarkable. IMPRESSION: 1. No acute osseous abnormality. Reviewed, dictated and finalized at location A.
[2022-03-09 04:44] VITALS: BP 109/66; PULSE 100; RESP 18; TEMP 36.6; O2SAT 100
--- NOTE | 2022-03-09 04:53 | ED.GENADULT ---
[facility] - General Adult General Chief complaint: Extremity Injury, Lower Stated complaint: fall, left foot pain Time Seen by Provider: 03/09/22 04:39 Source: patient and family History of Present Illness HPI narrative: 36-year-old female presented to the emergency department for evaluation of pain in her left foot. Patient states that she woke up with intense pain in her left foot. Patient states it felt like her foot had been falling asleep. Patient reports that yesterday before going to bed she did have a ground-level fall. She denies striking her head denies any injury to the left knee. Patient states that she did have some pain to the bottom of the left foot but that it was minor and she went to bed. Patient she was awoken in the night with intense pain of the left foot. Patient noticed the foot was cold and numb so she presented to the emergency department for evaluation. Patient denies any prior history of clotting or bleeding disorders. Patient denies any prior history of PE or DVT. Patient denies any IV drug use. Patient denies any prior history of atrial fibrillation. Patient does have history of multiple abdominal surgeries relating to uterine issues. Related Data Home Medications Medication Instructions Recorded Confirmed omeprazole 20 mg PO DAILY 03/09/22 Allergies Allergy/AdvReac Type Severity Reaction Status Date / Time lactase Allergy Mild Upset Verified 12/02/21 16:08 stomach latex Allergy Mild Hives Verified 12/02/21 16:08 Iodinated Contrast Media AdvReac Intermediate Nausea and Verified 12/02/21 16:08 Vomiting Contrast Media Allergy Intermediate Nausea and Uncoded 12/02/21 16:08 Vomiting Dairy Allergy Mild Gastrointestinal Uncoded 12/02/21 16:08 Upset Review of Systems Review of Systems: CONSTITUTIONAL: Denies fever, chills, or sweats. EYES: Denies visual changes, redness, or discharge. ENT: Denies rhinorrhea, congestion, sore throat, or otalgia. CARDIOVASCULAR: Denies chest pain, palpitations, or edema. RESPIRATORY: Denies cough or dyspnea. GASTROINTESTINAL: Denies abdominal pain, nausea, vomiting, or diarrhea. GENITOURINARY: Denies dysuria or hematuria. SKIN: Denies rash or itching. MUSCULOSKELETAL: Left foot pain, some pain behind left knee NEUROLOGIC: See [facility] Past Medical History Medical History (Updated 03/09/22 @ 06:05 by Ray Carvajal MD) Asthma Cataract Migraine PID (acute pelvic inflammatory disease) Seizure disorder Trichomonas contact, treated Surgical History Surgical History (Updated 12/02/21 @ 16:16 by Ariadna De La Cruz NP) History of appendectomy History of cholecystectomy History of hysterectomy Hx of eye surgery Family History Family History Grandparent Diabetes mellitus Family history of blood dyscrasia Cerebrovascular accident Social History Social History Smoking status: Current every day smoker Tobacco type: cigarettes Second hand tobacco smoke exposure: No Alcohol intake: current Gender identity (if verbalized by the patient): Female Exam Narrative: APPEARANCE: Well appearing, no pain, no distress, well-nourished. HEAD: normocephalic, atraumatic. EYES: PERRLA/EOMI, conjunctivae clear. NOSE: Normal no drainage NECK: Supple. No adenopathy, no masses. RESPIRATORY: Airway patent, respirations nonlabored. Clear to auscultation bilaterally, no rales, rhonchi, wheezing. CARDIOVASCULAR: Regular rate and rhythm without murmurs rubs or gallops. ABDOMINAL: Soft, nontender, nondistended, normal bowel sounds MUSCULOSKELETAL: Patient has normal range of motion of the left knee and left ankle. From the ankle below the patient has a cold mottled foot. The mottling appearance worsens as it approaches the left great toe. Patient states she is unable to move any of her toes. Patient does have decreased sensation over
--- NOTE | 2022-03-09 05:13 | ECG_ITS ---
Measurements Intervals [place] Rate: 93 P: 27 LA: 129 QRS: 54 QRSD: 74 T: 61 QT: 343 QTc: 427 Interpretive Statements SINUS RHYTHM WITH SINUS ARRHYTHMIA BASELINE ARTIFACT- I, III, AVL NORMAL ECG Electronically Signed On 03-09-2022 6:49:51 CDT by Herman Mast D.O.
[2022-03-09] MEDS: HYDROmorphone HCL INJ (*CRX) 1 MG/ML SYR IV PUSH ×2 (05:19→06:09)
[2022-03-09 05:26] LABS: Basophils Absolute Auto 0.1 K/mm3 (0.0-0.1); Basophils Percent Auto 0.5 % (0.2-1.2); Eosinophils Absolute Auto 0.5 K/mm3 (0-0.3); Eosinophils Percent Auto 4.6 % (0-4.4); Hematocrit 43.7 % (37.0-47.0); Hemoglobin 14.5 g/dL (12.0-15.0); Immature Granulocyte Absolute 0.03 K/mm3 (0.00-0.031); Immature Granulocyte Percent A 0.3 % (0-0.5); Lymphocytes Absolute Auto 2.42 K/mm3 (0.9-3.2); Lymphocytes Percent Auto 23.7 % (18.3-44.2); Mean Corpuscular HGB Conc 33.2 g/dl (32-36); Mean Corpuscular Hemoglobin 32.7 pg (26-34); Mean Corpuscular Volume 98.6 fl (80-100); Mean Platelet Volume 9.1 fl (7.4-10.4); Monocytes Percent Auto 10.1 % (2.6-8.5); Neutrophils Absolute Auto 6.2 K/mm3 (1.3-6.7); Neutrophils Percent Auto 60.8 % (45.5-73.1); Platelet Count Result 414 k/mm3 (150-375); Red Blood Count 4.43 M/mm3 (4.2-5.4); White Blood Count 10.2 K/mm3 (4.5-10.0)
--- NOTE | 2022-03-09 05:33 | PC.NURSE ---
called [facility] to request transport. [address] on the way - ETA 25. minutes.
[2022-03-09 05:38] LABS: Alanine Aminotransferase 29 U/L (6-35); Albumin Level 4.3 g/dL (3.5-5.1); Alkaline Phosphatase 79 U/L (38-126); Anion Gap 5 mmol/L (8-16); Aspartate Amino Transferase 24 U/L (14-36); Bilirubin,Total 0.2 mg/dL (0.2-1.3); Blood Urea Nitrogen 18 mg/dL (7-17); Calcium 9.3 mg/dL (8.4-10.2); Carbon Dioxide 29 mmol/L (22-30); Chloride 106 mmol/L (98-107); Estimated CRCL calculation 83 ml/min; Estimated Glomerular Filt Rate > 60; Glucose 74 mg/dL (65-110); Potassium 4.6 mmol/L (3.4-5.0); Sodium 140 mmol/L (137-145)
[2022-03-09 05:42] LABS: INR 0.9; Prothrombin Time 11.8 Seconds (11.1-14.7)
[2022-03-09 05:43] LABS: Partial Thromboplastin Time 27.6 SECONDS (22.3-36.8)
--- NOTE | 2022-03-09 05:59 | PC.NURSE ---
called [facility] for ETA. ETA is 15 more minutes.
[2022-03-09 06:07] LABS: Lactic Acid Reflex 0.9 mmol/L (0.7-2.0)
[2022-03-09] MEDS: HEPARIN SODIUM 5,000 UNITS/ML VIAL 5000 UNITS IV PUSH (06:14)
== END 2022-03-09 06:16 | disposition short-term general hospital (02) ==
PROVIDERS: Emergency Provider Emergency Medicine
DX: I70.222 Atherosclerosis of native arteries of extremities with rest pain, left leg (principal); J45.909 Unspecified asthma, uncomplicated; G40.909 Epilepsy, unspecified, not intractable, without status epilepticus; F17.210 Nicotine dependence, cigarettes, uncomplicated
CPT/HCPCS: 36415; 73562; 73590; 73610; 73630; 80053; 83605; 85025; 85610; 85730; 93005; 96374; 96375; 96376; 99284; J1170; J1644

== ENCOUNTER 2022-03-15 17:51 | Emergency (ER) | payer OTHER, SELFPAY ==
[2022-03-15 18:00] VITALS: BP 144/80; PULSE 113; RESP 18; TEMP 36.7; O2SAT 99
--- NOTE | 2022-03-15 18:07 | ED.EXTPRO ---
HPI - Extremity Problem General Chief complaint: Extremity Injury, Lower Stated complaint: Lt Foot Pain Time Seen by Provider: 03/15/22 18:25 Mode of arrival: ambulatory Limitations: no limitations History of Present Illness HPI Narrative: 36-year-old female presents with concern for left foot pain. Reports she was treated at [facility] for an arterial blood clot approximately 1 week ago. Reports she was discharged with Eliquis, nerve pain medicine and crutches. Reports she has been taking her medications as prescribed. Reports she began having worsening foot pain and noticed is the color at the bottom of her foot on her toes is turning purple. She reports she has a follow-up appointment from her [facility] stay but is not until next week MD Complaint: extremity pain Related Data Home Medications Medication Instructions Recorded Confirmed apixaban [Eliquis] 10 mg PO BID 03/15/22 03/15/22 gabapentin 300 mg PO TID 03/15/22 03/15/22 oxycodone 5 mg PO QID 03/15/22 03/15/22 Allergies Allergy/AdvReac Type Severity Reaction Status Date / Time lactase Allergy Mild Upset Verified 03/15/22 18:37 stomach latex Allergy Mild Hives Verified 03/15/22 18:37 Iodinated Contrast Media AdvReac Intermediate Nausea and Verified 03/15/22 18:37 Vomiting Contrast Media Allergy Intermediate Nausea and Uncoded 03/15/22 18:37 Vomiting Dairy Allergy Mild Gastrointestinal Uncoded 03/15/22 18:37 Upset Review of Systems Review of Systems: CONSTITUTIONAL: Denies malaise, chills, sweats, or fever. CARDIOVASCULAR: Denies chest pain, palpitations, or edema. RESPIRATORY: Denies cough or dyspnea. SKIN: Reports left pedal foot discoloration MUSCULOSKELETAL: Reports left foot pain All systems reviewed & are unremarkable except as noted in HPI and below PMFSH Past Medical History Medical History (Updated 03/15/22 @ 18:38 by Charlene Bajwa NP) Asthma Cataract Migraine PID (acute pelvic inflammatory disease) Seizure disorder Trichomonas contact, treated Surgical History Surgical History (Updated 12/02/21 @ 16:16 by Ariadna De La Cruz NP) History of appendectomy History of cholecystectomy History of hysterectomy Hx of eye surgery Family History Family History Grandparent Diabetes mellitus Family history of blood dyscrasia Cerebrovascular accident Social History Social History Smoking status: Current every day smoker Tobacco type: cigarettes Second hand tobacco smoke exposure: No Alcohol intake: current Gender identity (if verbalized by the patient): Female Comments At time of signature, agree with nursing past medical, surgical, social and family history. There is no relevant family history pertinent to the presenting complaint Exam Narrative: GENERAL: Well-appearing, well-nourished, and in no acute distress. HEAD: Normocephalic EYES: PERRLA ENT: Nares clear. Mucous membranes moist. NECK: Supple. CHEST: No respiratory distress. Speaks in full sentences. HEART: Regular rate and rhythm. Pedal pulses palpable and equal. Right foot cap refill is <3 seconds, left foot cap refill is 3 seconds EXTREMITIES: Pain upon light touch to left foot, slight dusky color to the pedal aspects of the distal digits of the left foot SKIN: Warm, dry, no visible rash, lesions, sores. NEURO: Alert and oriented x3. PSYCH: Normal mood and affect Course Course Emergency Course: Discussed with patient that she needs to be seen at [facility] for reevaluation of her foot. Patient request pain medicine, explained to her that pain medicine is not appropriate until other causes for her pain are ruled out. Patient agrees to go to [facility] for reevaluation. Explained the patient that if she cannot get [facility] she should go to local hospital. Offered karli
== END 2022-03-15 18:40 | disposition home or self-care (01) ==
PROVIDERS: Emergency Provider Nurse Practitioner
DX: M79.672 Pain in left foot (principal); F17.210 Nicotine dependence, cigarettes, uncomplicated; J45.909 Unspecified asthma, uncomplicated
CPT/HCPCS: 99212; G0463

== ENCOUNTER 2022-04-28 12:06 | Emergency (ER) | payer OTHER, SELFPAY ==
[2022-04-28 12:29] VITALS: BP 101/60; PULSE 81; RESP 17; TEMP 36.3; O2SAT 98
--- NOTE | 2022-04-28 13:09 | ED.EAR ---
HPI - Ear Problem General Chief complaint: Ear Stated complaint: lt earache Time Seen by Provider: 04/28/22 13:09 History of Present Illness HPI Narrative: Patient is a 37-year-old female who had a blood clot in her left foot earlier this month and is on Eliquis has had left ear pain for the last week Related Data Home Medications Medication Instructions Recorded Confirmed apixaban 5 mg tablet (Eliquis) 10 mg PO BID 03/15/22 04/28/22 gabapentin 300 mg capsule 300 mg PO TID 03/15/22 04/28/22 bupropion HCl 300 mg 24 hr tablet, 300 tablet PO DAILY 04/28/22 04/28/22 extended release paroxetine HCl 20 mg tablet 1 tablet PO DAILY 04/28/22 04/28/22 Allergies Allergy/AdvReac Type Severity Reaction Status Date / Time lactase Allergy Mild Upset Verified 04/28/22 12:52 stomach latex Allergy Mild Hives Verified 04/28/22 12:52 Iodinated Contrast Media AdvReac Intermediate Nausea and Verified 04/28/22 12:52 Vomiting Contrast Media Allergy Intermediate Nausea and Uncoded 04/28/22 12:52 Vomiting Dairy Allergy Mild Gastrointestinal Uncoded 04/28/22 12:52 Upset Review of Systems Review of Systems: CONSTITUTIONAL: Denies fever, chills, sweats. EYES: Denies visual changes, redness, discharge. ENT: Denies rhinorrhea, congestion, sore throat, left otalgia. CARDIOVASCULAR: Denies chest pain, palpitations, edema. RESPIRATORY: Denies dyspnea, wheezing, cough GASTROINTESTINAL: Denies abdominal pain, nausea, vomiting, diarrhea. GENITOURINARY: Denies dysuria, hematuria, abnormal discharge SKIN: Denies rash or itching. NEUROLOGIC: Denies numbness, or focal weakness. PSYCHIATRIC: Denies anxiety or depression. [facility] Past Medical History Medical History Asthma Cataract DVT (deep venous thrombosis) Migraine PID (acute pelvic inflammatory disease) Seizure disorder Trichomonas contact, treated Surgical History Surgical History History of appendectomy History of cholecystectomy History of hysterectomy Hx of eye surgery Family History Family History Grandparent Diabetes mellitus Family history of blood dyscrasia Cerebrovascular accident Social History Social History Smoking status: Current every day smoker Tobacco type: cigarettes Second hand tobacco smoke exposure: No Alcohol intake: current Gender identity (if verbalized by the patient): Female Exam Narrative: GENERAL: This is a well-nourished, well-developed patient, in mild distress. HEAD: normocephalic, atraumatic. EYES: Sclera clear/white. Vision is grossly intact. EARS: External ears normal, auditory canals onL red, small amount drainage. TMs normal without perforation. Hearing grossly intact. NOSE: External nose normal without nasal discharge, nares without redness, no rhinorrhea. THROAT: Mucous membranes moist, NECK: Neck supple, non-tender CARDIOVASCULAR: Regular rate and rhythm without murmurs, gallops, or rubs. RESPIRATORY: Clear to auscultation. Breath sounds equal bilaterally. No wheezes, rales, or rhonchi. GASTROINTESTINAL: Not done SKIN: warm, intact with no suspicious lesions or rash, good texture and turgor. NEURO: awake, alert, and oriented to person, place and time. There were no obvious focal neurologic abnormalities. Steady gait EXTREMITIES: Normal range of motion. BACK: Nontender without deformity Course Course Emergency Course: Patient has had left ear pain for 1 week Ear is red and draining started on eardrops Level of Care: Express Care Visit Vital Signs Vital signs: Vital Signs Temperature 97.3 F L 04/28/22 12:29 Pulse Rate 81 04/28/22 12:29 Respiratory Rate 17 04/28/22 12:29 Blood Pressure 101/60 04/28/22 12:29 Pulse Oximetry 98 04/28/22 12:29 Oxygen Delivery Room Air
== END 2022-04-28 13:22 | disposition home or self-care (01) ==
PROVIDERS: Emergency Provider Nurse Practitioner
DX: H66.92 Otitis media, unspecified, left ear (principal); F17.210 Nicotine dependence, cigarettes, uncomplicated; J45.909 Unspecified asthma, uncomplicated; G40.909 Epilepsy, unspecified, not intractable, without status epilepticus; Z86.718 Personal history of other venous thrombosis and embolism; H26.9 Unspecified cataract
CPT/HCPCS: 99213; G0463

== ENCOUNTER 2022-05-31 17:13 | Emergency (ER) | payer OTHER, SELFPAY ==
--- NOTE | ~2022-05-31 | XR_ITS ---
EXAM: XR wrist LT min 3V DATE: 05/31/2022 18:01 HISTORY: left wrist pain/no trauma . COMPARISON: None available. FINDINGS: Normal mineralization. No fracture or dislocation. No lytic or blastic lesion. Joint space s are maintained. No erosion or periosteal change. Soft tissues within normal limits. IMPRESSION: No acute osseous finding in the left wrist. Reviewed, dictated and finalized at location K.
[2022-05-31 17:41] VITALS: BP 120/58; PULSE 94; RESP 18; TEMP 36.9; O2SAT 99
--- NOTE | 2022-05-31 18:07 | ED.UPPEXIN ---
HPI - Extremity Injury (Upper) General Chief Complaint: Extremity Injury, Upper Stated Complaint: wrist pain Time Seen by Provider: 05/31/22 18:09 Source: patient and RN notes reviewed Mode of arrival: ambulatory Limitations: no limitations History of Present Illness HPI narrative: 37-year-old female presents with concern for left wrist pain. She denies injury or trauma. Reports she was moving some boxes before her wrist started to hurt. She reports it is tender on the ulnar aspect of the wrist. She reports she is been taking Tylenol complaint: injury to: left and wrist Related Data Home Medications Medication Instructions Recorded Confirmed apixaban 5 mg tablet (Eliquis) 10 mg PO BID 03/15/22 05/31/22 gabapentin 300 mg capsule 300 mg PO TID 03/15/22 05/31/22 bupropion HCl 300 mg 24 hr tablet, 300 tablet PO DAILY 04/28/22 05/31/22 extended release paroxetine HCl 20 mg tablet 1 tablet PO DAILY 04/28/22 05/31/22 Allergies Allergy/AdvReac Type Severity Reaction Status Date / Time lactase Allergy Mild Upset Verified 05/31/22 17:45 stomach latex Allergy Mild Hives Verified 05/31/22 17:45 Iodinated Contrast Media AdvReac Intermediate Nausea and Verified 05/31/22 17:45 Vomiting Contrast Media Allergy Intermediate Nausea and Uncoded 05/31/22 17:45 Vomiting Dairy Allergy Mild Gastrointestinal Uncoded 05/31/22 17:45 Upset Review of Systems Review of Systems: CONSTITUTIONAL: Denies malaise, chills, sweats, or fever. CARDIOVASCULAR: Denies chest pain, palpitations, or edema. RESPIRATORY: Denies cough or dyspnea. SKIN: Denies rash or itching, bruising, redness, swelling. MUSCULOSKELETAL: Reports left wrist pain NEUROLOGIC: Denies numbness, weakness All systems reviewed & are unremarkable except as noted in HPI and below PMFSH Past Medical History Medical History Asthma Cataract DVT (deep venous thrombosis) Migraine PID (acute pelvic inflammatory disease) Seizure disorder Trichomonas contact, treated Surgical History Surgical History History of appendectomy History of cholecystectomy History of hysterectomy Hx of eye surgery Family History Family History Grandparent Diabetes mellitus Family history of blood dyscrasia Cerebrovascular accident Social History Social History Smoking status: Current every day smoker Tobacco type: cigarettes Second hand tobacco smoke exposure: No Alcohol intake: current Gender identity (if verbalized by the patient): Female Comments At time of signature, agree with nursing past medical, surgical, social and family history. There is no relevant family history pertinent to the presenting complaint Exam Narrative: GENERAL: Well-appearing, well-nourished, and in no acute distress. HEAD: Normocephalic, atraumatic. EYES: PERRLA, conjunctivae clear NECK: Supple. CHEST: Speaks in full sentences. No respiratory distress. HEART: Regular rate and rhythm. Normal and equal peripheral pulses. EXTREMITIES: Left wrist, hand, digits have normal strength and sensation, limited range of motion. No edema or ecchymosis. 5/5 strength with digit flexion and extension. Normal sensation with sensitivity to light touch and pain. Ulnar tenderness, tenderness to the mid arm and just below the elbow on the ulnar side. No open wounds, no skin tenting, no devitalized tissue or atrophy, no trophic changes, no obvious deformity, alignment normal, nearby joints and structures intact. Distal pulses palpable and equal bilaterally, skin warm, dry, pink. Capillary refill less than 3 seconds. SKIN: Warm, dry, no rash. NEURO: Alert and oriented x3. PSYCH: Normal mood and affect Course Course Emergency Course: Patient is aware of diagnosis, understands and agree
== END 2022-05-31 18:37 | disposition home or self-care (01) ==
PROVIDERS: Emergency Provider Nurse Practitioner
DX: M77.8 Other enthesopathies, not elsewhere classified (principal); F17.210 Nicotine dependence, cigarettes, uncomplicated; J45.909 Unspecified asthma, uncomplicated; G40.909 Epilepsy, unspecified, not intractable, without status epilepticus; Z86.718 Personal history of other venous thrombosis and embolism; H26.9 Unspecified cataract
CPT/HCPCS: 73110; 99213; G0463

== ENCOUNTER 2022-10-11 13:15 | Emergency (ER) | payer OTHER, SELFPAY ==
[2022-10-11 13:24] VITALS: PULSE 100; RESP 18; TEMP 35.8; O2SAT 99
--- NOTE | 2022-10-11 13:25 | ED.URI ---
HPI - URI/Sore Throat General Chief Complaint: Upper Respiratory Infection Stated Complaint: Congestion,Headache,Cough Time Seen by Provider: 10/11/22 13:25 Source: patient Mode of arrival: ambulatory Limitations: no limitations History of Present Illness HPI Narrative: Ms. Banuelos is a 37-year-old female patient presenting to the clinic today with complaints cough, sinus congestion/pressure, and headache x5 days. She reports that she has felt feverish but did not know what her temperature was as she does not have a thermometer at home. MD elicited complaint: cough, nasal congestion, sinus pain and other (Headache) Related Data Home Medications Medication Instructions Recorded Confirmed apixaban 5 mg tablet (Eliquis) 10 mg PO BID 03/15/22 10/11/22 gabapentin 300 mg capsule 300 mg PO TID 03/15/22 10/11/22 bupropion HCl 300 mg 24 hr tablet, 300 tablet PO DAILY 04/28/22 10/11/22 extended release paroxetine HCl 20 mg tablet 1 tablet PO DAILY 04/28/22 10/11/22 loratadine 10 mg tablet (Claritin) 10 mg PO DAILY 10/11/22 10/11/22 Allergies Allergy/AdvReac Type Severity Reaction Status Date / Time lactase Allergy Mild Upset Verified 10/11/22 13:17 stomach latex Allergy Mild Hives Verified 10/11/22 13:17 Iodinated Contrast Media AdvReac Intermediate Nausea and Verified 10/11/22 13:17 Vomiting Contrast Media Allergy Intermediate Nausea and Uncoded 10/11/22 13:17 Vomiting Dairy Allergy Mild Gastrointestinal Uncoded 10/11/22 13:17 Upset Review of Systems Review of Systems: Pertinent positives per HPI. Patient denies any fever, chills, rash, visual changes, dizziness, shortness of breath, chest pain, palpitations, nausea, vomiting, diarrhea, constipation, abdominal pain, or any urinary issues. [facility] Past Medical History Medical History Asthma Cataract DVT (deep venous thrombosis) Migraine PID (acute pelvic inflammatory disease) Seizure disorder Trichomonas contact, treated Surgical History Surgical History History of appendectomy History of cholecystectomy History of hysterectomy Hx of eye surgery Family History Family History Grandparent Diabetes mellitus Family history of blood dyscrasia Cerebrovascular accident Social History Social History Smoking status: Current every day smoker Tobacco type: cigarettes Second hand tobacco smoke exposure: No Alcohol intake: current Gender identity (if verbalized by the patient): Female Comments At the time of my signature, I reviewed and agree with the nursing past medical, surgical, social, and family history. There is no relevant family history pertinent to the patient complaint. Exam Narrative: General: Well-developed, well nourished, in no apparent distress Head: Normocephalic, atraumatic Eyes: Pupils equally round and reactive to light bilaterally, EOM intact, sclera and conjunctive clear, no discharge, lids normal Ears: TMs intact and clear, ear canals clear, no drainage, grossly hearing normal. Nose: Nares patent, green nasal discharge, severe inflammation with white streaking straie, maxillary and frontal sinus tenderness. Mouth: Oral pharynx without lesions or masses, good dentition, MMM. Post nasal drip Neck: Supple, trachea midline, no enlargement of anterior or posterior cervical nodes, no thyroid masses or goiter palpable. Cardio: Regular rate and rhythm, s1 and s2 normal, no murmur appreciated. Resp: Clear to auscultation bilaterally, no rhonchi, rales, wheezing or rubs Course Course Emergency Course: Portions of this record may have been created with voice recognition software. Level of Care: Express Care Visit Vital Signs Vital signs: Vital Signs Temperature 35.8 C L 1
[2022-10-11 13:50] VITALS: BP 94/60
== END 2022-10-11 13:48 | disposition home or self-care (01) ==
PROVIDERS: Emergency Provider Nurse Practitioner Family
DX: J01.90 Acute sinusitis, unspecified (principal); Z20.822 Contact with and (suspected) exposure to COVID-19; F17.210 Nicotine dependence, cigarettes, uncomplicated; J45.909 Unspecified asthma, uncomplicated; Z86.718 Personal history of other venous thrombosis and embolism; H26.9 Unspecified cataract; G40.909 Epilepsy, unspecified, not intractable, without status epilepticus
CPT/HCPCS: 87426; 99213; C9803; G0463

== ENCOUNTER 2022-10-29 12:16 | Emergency (ER) | payer OTHER, SELFPAY ==
--- NOTE | ~2022-10-29 | XR_ITS ---
EXAM: XR shoulder RT min 2V DATE: 10/29/2022 15:26 HISTORY: Power pop on 10/22, limited ROM . COMPARISON: None available. FINDINGS: Normal mineralization. No fracture or dislocation. No lytic or blastic lesion. Joint space s are maintained. No erosion or periosteal change. Soft tissues within normal limits. IMPRESSION: No acute osseous finding in the right shoulder. Reviewed, dictated and finalized at location K. [employer]
[2022-10-29 13:12] VITALS: BP 138/75; PULSE 99; RESP 18; TEMP 36.6; O2SAT 100
--- NOTE | 2022-10-29 15:10 | ED.GENADULT ---
HPI - General Adult General Chief complaint: Extremity Injury, Upper Stated complaint: right shoulder pain Time Seen by Provider: 10/29/22 15:10 Source: patient Mode of arrival: ambulatory Limitations: no limitations History of Present Illness HPI narrative: 37-year-old female patient presents to the [facility] with complaints of right shoulder pain. Patient states she was cleaning a mere on [place] and heard a pop in her right shoulder and since then has been having increasing pain. Patient states has gotten to the point where now she has limited range of motion and can barely move her right shoulder. Patient states she has been taking Tylenol for pain because she is on blood thinners. Patient denies any numbness or tingling to the fingers. Related Data Home Medications Medication Instructions Recorded Confirmed apixaban 5 mg tablet (Eliquis) 10 mg PO BID 03/15/22 10/29/22 loratadine 10 mg tablet (Claritin) 10 mg PO DAILY 10/11/22 10/29/22 albuterol sulfate 90 mcg/actuation 1 inh inhalation DIRECTED 10/29/22 10/29/22 aerosol inhaler omeprazole 20 mg capsule,delayed 20 mg PO DAILY 10/29/22 10/29/22 release Allergies Allergy/AdvReac Type Severity Reaction Status Date / Time lactase Allergy Mild Upset Verified 10/29/22 13:55 stomach latex Allergy Mild Hives Verified 10/29/22 13:55 Iodinated Contrast Media AdvReac Intermediate Nausea and Verified 10/29/22 13:55 Vomiting Contrast Media Allergy Intermediate Nausea and Uncoded 10/29/22 13:55 Vomiting Dairy Allergy Mild Gastrointestinal Uncoded 10/29/22 13:55 Upset Review of Systems Review of Systems: CONSTITUTIONAL: Denies fever, chills, or sweats. EYES: Denies visual changes, redness, or discharge. ENT: Denies rhinorrhea, congestion, sore throat, or otalgia. CARDIOVASCULAR: Denies chest pain, palpitations, or edema. RESPIRATORY: Denies cough or dyspnea. GASTROINTESTINAL: Denies abdominal pain, nausea, vomiting, or diarrhea. GENITOURINARY: Denies dysuria or hematuria. SKIN: Denies rash or itching. MUSCULOSKELETAL: Denies back pain, joint pain, or myalgia. Positive right shoulder pain times 1 week NEUROLOGIC: Denies headache, numbness, or weakness. PSYCHIATRIC: Denies anxiety or depression. PMFSH Past Medical History Medical History Asthma Cataract DVT (deep venous thrombosis) Migraine PID (acute pelvic inflammatory disease) Seizure disorder Trichomonas contact, treated Surgical History Surgical History History of appendectomy History of cholecystectomy History of hysterectomy Hx of eye surgery Family History Family History Grandparent Diabetes mellitus Family history of blood dyscrasia Cerebrovascular accident Social History Social History Smoking status: Current every day smoker Tobacco type: cigarettes Second hand tobacco smoke exposure: No Alcohol intake: current Gender identity (if verbalized by the patient): Female Comments At the time of my signature I agree with nursing past medical history, surgical, social, and family history. There is no relevant family history pertinent to the presenting complaint. Exam Narrative: GENERAL: Well-appearing, well-nourished, and in no acute distress. HEAD: Normocephalic, atraumatic. EYES: PERRLA and EOMI. ENT: Nares clear, no rhinorrhea or epistaxis. Mucous membranes moist. NECK: Supple. No lymphadenopathy CHEST: Clear to auscultation. No respiratory distress. HEART: Regular rate and rhythm. No murmur heard. Normal peripheral pulses. ABDOMEN: Soft, nontender, nondistended, normal active bowel sounds. EXTREMITIES: The R shoulder is without obvious asymmetry or deformity when compared to the L shoulder. No surface trauma, ecchymosis, crepitus. No moreno
== END 2022-10-29 16:00 | disposition home or self-care (01) ==
PROVIDERS: Emergency Provider Nurse Practitioner Family
DX: M25.511 Pain in right shoulder (principal); J45.909 Unspecified asthma, uncomplicated; Z86.718 Personal history of other venous thrombosis and embolism; H26.9 Unspecified cataract; Z79.01 Long term (current) use of anticoagulants; F17.210 Nicotine dependence, cigarettes, uncomplicated
CPT/HCPCS: 73030; 99213; A4565; G0463

== ENCOUNTER 2022-12-16 19:19 | Emergency (ER) | payer OTHER, SELFPAY ==
[2022-12-16 19:27] VITALS: BP 126/81; PULSE 95; RESP 18; TEMP 36.7; O2SAT 100
--- NOTE | 2022-12-16 19:34 | ED.URI ---
HPI - URI/Sore Throat General Chief Complaint: Upper Respiratory Infection Stated Complaint: sneezing; drainage Time Seen by Provider: 12/16/22 19:34 Source: patient, RN notes reviewed and old records reviewed Mode of arrival: ambulatory Limitations: no limitations History of Present Illness HPI Narrative: 37-year-old female presents to the [facility] with sneezing and sinus drainage for the last month. patient reports he was seen about a month ago and symptoms have not completely resolve, states they have gotten a little bit better but Still having green drainage. denies any has sinus pressure pain. Denies fevers. Has not been taking anything. states that she does not per take anything that is not prescribed to her Related Data Home Medications Medication Instructions Recorded Confirmed apixaban 5 mg tablet (Eliquis) 10 mg PO BID 03/15/22 12/16/22 loratadine 10 mg tablet (Claritin) 10 mg PO DAILY 10/11/22 12/16/22 albuterol sulfate 90 mcg/actuation 1 inh inhalation DIRECTED 10/29/22 12/16/22 aerosol inhaler omeprazole 20 mg capsule,delayed 20 mg PO DAILY 10/29/22 12/16/22 release Allergies Allergy/AdvReac Type Severity Reaction Status Date / Time lactase Allergy Mild Upset Verified 12/16/22 19:44 stomach latex Allergy Mild Hives Verified 12/16/22 19:44 Iodinated Contrast Media AdvReac Intermediate Nausea and Verified 12/16/22 19:44 Vomiting Contrast Media Allergy Intermediate Nausea and Uncoded 12/16/22 19:44 Vomiting Dairy Allergy Mild Gastrointestinal Uncoded 12/16/22 19:44 Upset Review of Systems Review of Systems: All systems reviewed & are unremarkable except as noted in HPI and below Constitutional: Constitutional: Reports no additional constitutional complaints Eyes: Eyes: Reports no additional eye complaints ENT: Reports as per HPI ( green nasal discharge) Cardiovascular: Cardiovascular: Reports no additional cardiovascular complaints, Denies chest pain and Denies dyspnea Respiratory: Respiratory: Reports no additional respiratory complaints, Denies chest congestion, Denies cough and Denies dyspnea Gastrointestinal: Gastrointestinal: Reports no additional gastrointestinal complaints, Denies abdominal pain, Denies nausea and Denies vomiting Musculoskeletal: Musculoskeletal: Reports no additional musculoskeletal complaints Integumentary/Breasts: Skin/Breast: Reports system reviewed and no additional complaints, except as docu Neurologic: Reports system reviewed and no additional complaints, except as documented Psychiatric: Psychiatric: Reports no additional psychiatric complaints Allergic/Immunologic: Allergic/Immunologic: Reports no additional allergic/immunologic complaints [facility] Past Medical History Medical History Asthma Cataract DVT (deep venous thrombosis) Migraine PID (acute pelvic inflammatory disease) Seizure disorder Trichomonas contact, treated Surgical History Surgical History History of appendectomy History of cholecystectomy History of hysterectomy Hx of eye surgery Family History Family History Grandparent Diabetes mellitus Family history of blood dyscrasia Cerebrovascular accident Social History Social History Smoking status: Current every day smoker Tobacco type: cigarettes Second hand tobacco smoke exposure: No Alcohol intake: current Gender identity (if verbalized by the patient): Female Comments At the time of my signature, I reviewed and agree with the nursing past medical, surgical, social, and family history. There is no relevant family history pertinent to the patient complaint. Exam Const: General: cooperative, healthy appearing, comfortable, no acute distress, well developed, alert and well nour
== END 2022-12-16 19:45 | disposition home or self-care (01) ==
PROVIDERS: Emergency Provider Nurse Practitioner
DX: J32.9 Chronic sinusitis, unspecified (principal); J45.909 Unspecified asthma, uncomplicated; F17.210 Nicotine dependence, cigarettes, uncomplicated; Z86.718 Personal history of other venous thrombosis and embolism; Z79.01 Long term (current) use of anticoagulants
CPT/HCPCS: 99213; G0463

== ENCOUNTER 2023-04-24 18:30 | Emergency (ER) | payer OTHER, SELFPAY ==
--- NOTE | 2023-04-24 19:14 | ED.FEMALEGU ---
HPI - Female Genitourinary General Chief complaint: Urogenital-Female Stated complaint: uti symptoms Time Seen by Provider: 04/24/23 19:14 Source: patient Mode of arrival: ambulatory Limitations: no limitations History of Present Illness HPI Narrative: Patient is a 38-year-old female who presents with 3 days of urinary frequency and urgency. Denies any burning with urination, blood in urine, fever or low back pain that is outside of her normal. Patient admits she does not drink water frequently and does drink significant amounts of caffeine. Patient also requesting refill of albuterol inhaler and Flonase. Patient denies any vaginal discharge and has no concern for STD. MD elicited complaint: dysuria Related Data Allergies Allergy/AdvReac Type Severity Reaction Status Date / Time lactase Allergy Mild Upset Verified 04/24/23 19:19 stomach latex Allergy Mild Hives Verified 04/24/23 19:19 Iodinated Contrast Media AdvReac Intermediate Nausea and Verified 04/24/23 19:19 Vomiting Contrast Media Allergy Intermediate Nausea and Uncoded 04/24/23 19:19 Vomiting Dairy Allergy Mild Gastrointestinal Uncoded 04/24/23 19:19 Upset Review of Systems Review of Systems: All systems reviewed & are unremarkable except as noted in HPI and below Constitutional: Constitutional: Denies chills, Denies fever(s), Denies headache(s), Denies malaise and Denies weakness Eyes: Eyes: Denies change in vision, Denies eye discharge and Denies irritation ENT: Denies otalgia, Denies headache(s), Denies nasal congestion, Denies nasal discharge, Denies sinus pain and Denies sore throat Cardiovascular: Cardiovascular: Denies chest pain, Denies edema, Denies palpitations and Denies dyspnea Respiratory: Respiratory: Denies cough and Denies dyspnea Gastrointestinal: Gastrointestinal: Denies abdominal pain, Denies diarrhea, Denies nausea and Denies vomiting Genitourinary: Genitourinary: Denies hematuria, Reports urinary frequency, Reports nocturia, Denies dysuria, Denies flank pain and Reports urinary urgency Musculoskeletal: Musculoskeletal: Denies back pain and Denies numbness Integumentary/Breasts: Skin/Breast: Denies pruritus and Denies rash Neurologic: Denies headache(s), Denies numbness and Denies weakness Psychiatric: Psychiatric: Reports no additional psychiatric complaints Endocrine: Endocrine: Denies palpitations PMFSH Past Medical History Medical History Asthma Cataract DVT (deep venous thrombosis) Migraine PID (acute pelvic inflammatory disease) Seizure disorder Trichomonas contact, treated Surgical History Surgical History History of appendectomy History of cholecystectomy History of hysterectomy Hx of eye surgery Family History Family History Grandparent Diabetes mellitus Family history of blood dyscrasia Cerebrovascular accident Social History Social History Smoking status: Current every day smoker Tobacco type: cigarettes Second hand tobacco smoke exposure: No Alcohol intake: current Gender identity (if verbalized by the patient): Female Comments At time of signature, agree with nursing past medical, surgical, social and family history. There is no relevant family history pertinent to the presenting complaint. Exam Const: General: cooperative, healthy appearing, comfortable, no acute distress and well nourished Nutritional Appearance: well nourished Orientation/consciousness: patient oriented x3 HENMT: Head: normocephalic and atraumatic Ears: external ears normal Face/Nose/Sinus: Normal external nose present, Normal nares present and normal facial exam Face and sinus: normal facial exam Eyes: General: appearance normal, both eyes and all related structures Pupils: Equal
[2023-04-24 19:15] VITALS: BP 123/76; PULSE 83; RESP 16; TEMP 36.2; O2SAT 97
== END 2023-04-24 19:43 | disposition home or self-care (01) ==
PROVIDERS: Emergency Provider Nurse Practitioner Family
DX: R39.15 Urgency of urination (principal); Z76.0 Encounter for issue of repeat prescription; J45.909 Unspecified asthma, uncomplicated; H26.9 Unspecified cataract
CPT/HCPCS: 81003; 87086; 99213; G0463

== ENCOUNTER 2023-05-01 18:10 | Emergency (ER) | payer OTHER, SELFPAY ==
--- NOTE | 2023-05-01 18:18 | ED.FEMALEGU ---
HPI - Female Genitourinary General Chief complaint: Urogenital-Female Stated complaint: Female Urogenital Time Seen by Provider: 05/01/23 18:18 Source: patient, RN notes reviewed and old records reviewed Mode of arrival: ambulatory Limitations: no limitations History of Present Illness HPI Narrative: 38-year-old female presents to the [facility] with burning only with urination, vaginal discharge that she describes is thin and white, abnormal smell. Denies any abdominal pain, back pain. Not have very good historian with past medical is history Per medical record was seen a week ago, microbiology did not grow out any bacteria Has not followed up with her primary care provider or supplier relationship director provider Patient requesting refills of chronic medication, explained to patient that last time she was here that it was a 1 time event she needs to follow up with primary care provider for her chronic medications. Related Data Allergies Allergy/AdvReac Type Severity Reaction Status Date / Time Iodinated Contrast Media AdvReac Intermediate Nausea and Verified 05/01/23 18:15 Vomiting lactase AdvReac Mild Upset Verified 05/01/23 18:15 stomach latex AdvReac Mild Hives Verified 05/01/23 18:15 Contrast Media AdvReac Intermediate Nausea and Uncoded 05/01/23 18:15 Vomiting Dairy AdvReac Mild Gastrointestinal Uncoded 05/01/23 18:15 Upset Review of Systems Review of Systems: All systems reviewed & are unremarkable except as noted in HPI and below Constitutional: Constitutional: Reports no additional constitutional complaints Eyes: Eyes: Reports no additional eye complaints ENT: Reports system reviewed and no additional complaints, except as documented Cardiovascular: Cardiovascular: Reports no additional cardiovascular complaints, Denies chest pain and Denies dyspnea Respiratory: Respiratory: Reports no additional respiratory complaints, Denies chest congestion, Denies cough and Denies dyspnea Gastrointestinal: Gastrointestinal: Reports no additional gastrointestinal complaints, Denies abdominal pain, Denies nausea and Denies vomiting Genitourinary: Genitourinary: Reports as per HPI Musculoskeletal: Musculoskeletal: Reports no additional musculoskeletal complaints Integumentary/Breasts: Skin/Breast: Reports system reviewed and no additional complaints, except as docu Neurologic: Reports system reviewed and no additional complaints, except as documented Psychiatric: Psychiatric: Reports no additional psychiatric complaints Allergic/Immunologic: Allergic/Immunologic: Reports no additional allergic/immunologic complaints PMFSH Past Medical History Medical History Asthma Cataract DVT (deep venous thrombosis) Migraine PID (acute pelvic inflammatory disease) Seizure disorder Trichomonas contact, treated Surgical History Surgical History History of appendectomy History of cholecystectomy History of hysterectomy Hx of eye surgery Family History Family History Grandparent Diabetes mellitus Family history of blood dyscrasia Cerebrovascular accident Social History Social History Smoking status: Current every day smoker Tobacco type: cigarettes Second hand tobacco smoke exposure: No Alcohol intake: current Gender identity (if verbalized by the patient): Female Comments At the time of my signature, I reviewed and agree with the nursing past medical, surgical, social, and family history. There is no relevant family history pertinent to the patient complaint. Exam Const: General: cooperative, no acute distress, well developed, alert, anxious, uncomfortable and well nourished; No healthy appearing Nutritional Appearance: well nourished Orientation/consciousness: patient oriented x3 Limitations: no
[2023-05-01 18:20] VITALS: BP 121/88; PULSE 80; RESP 18; TEMP 36.3; O2SAT 100
== END 2023-05-01 18:42 | disposition home or self-care (01) ==
PROVIDERS: Emergency Provider Nurse Practitioner
DX: N76.0 Acute vaginitis (principal); F17.210 Nicotine dependence, cigarettes, uncomplicated; J45.909 Unspecified asthma, uncomplicated; H26.9 Unspecified cataract; Z86.718 Personal history of other venous thrombosis and embolism
CPT/HCPCS: 87070; 87491; 87591; 87661; 99214; G0463

== ENCOUNTER 2023-06-03 19:50 | Emergency (ER) | payer OTHER, SELFPAY ==
--- NOTE | 2023-06-03 19:51 | ED.EAR ---
HPI - Ear Problem General Chief complaint: Ear Stated complaint: lt ear pain Time Seen by Provider: 06/03/23 19:51 Source: patient Mode of arrival: ambulatory Limitations: no limitations History of Present Illness HPI Narrative: Jerri is a 38-year-old female patient presenting to the clinic today with complaints of left ear pain x3 days. She denies any fever or chills. States that she has had some yellow drainage coming from her ear. Also has pain to her tragus and when pulling of the pinna Related Data Home Medications Medication Instructions Recorded Confirmed loratadine 10 mg capsule 10 mg PO DAILY 06/03/23 06/03/23 Allergies Allergy/AdvReac Type Severity Reaction Status Date / Time Iodinated Contrast Media AdvReac Intermediate Nausea and Verified 06/03/23 19:58 Vomiting lactase AdvReac Mild Upset Verified 06/03/23 19:58 stomach latex AdvReac Mild Hives Verified 06/03/23 19:58 Contrast Media AdvReac Intermediate Nausea and Uncoded 06/03/23 19:58 Vomiting Dairy AdvReac Mild Gastrointestinal Uncoded 06/03/23 19:58 Upset Review of Systems Review of Systems: Pertinent positives per HPI. Patient denies any fever, chills, rash, headache, visual changes, dizziness, cough, runny nose, sore throat, shortness of breath, chest pain, palpitations, nausea, vomiting, diarrhea, constipation, abdominal pain, or any urinary issues. [facility] Past Medical History Medical History Asthma Cataract DVT (deep venous thrombosis) Migraine PID (acute pelvic inflammatory disease) Seizure disorder Trichomonas contact, treated Surgical History Surgical History History of appendectomy History of cholecystectomy History of hysterectomy Hx of eye surgery Family History Family History Grandparent Diabetes mellitus Family history of blood dyscrasia Cerebrovascular accident Social History Social History Smoking status: Current every day smoker Tobacco type: cigarettes Second hand tobacco smoke exposure: No Alcohol intake: current Gender identity (if verbalized by the patient): Female Comments At the time of my signature, I reviewed and agree with the nursing past medical, surgical, social, and family history. There is no relevant family history pertinent to the patient complaint. Exam Narrative: General: Well-developed, well nourished, in no apparent distress Head: Normocephalic, atraumatic Eyes: Pupils equally round and reactive to light bilaterally, EOM intact, sclera and conjunctive clear, no discharge, lids normal Ears: TMs intact and clear, right ear canals clear, left ear canal mildly red/swollen, pain when pulling of left pinna and palpation of the tragus, no drainage, grossly hearing normal. Nose: Nares patent, no discharge, no inflammation, no sinus tenderness. Mouth: Oropharynx without lesions or masses, good dentition, MMM. Neck: Supple, trachea midline, no enlargement of anterior or posterior cervical nodes, no thyroid masses or goiter palpable. Cardio: Regular rate and rhythm, s1 and s2 normal, no murmur appreciated. Resp: Clear to auscultation bilaterally anteriorly and posteriorly, no rhonchi, rales, wheezing or rubs Course Course Emergency Course: Portions of this record may have been created with voice recognition software. Level of Care: Express Care Visit Vital Signs Vital signs: Vital signs reviewed Medical Decision Making MDM Narrative Medical decision making narrative: At the time of visit patient is resting comfortably on the exam table. I suspect patient has left otitis externa. Prescription for ofloxacin ear drops was sent to the pharmacy and supportive measures were discussed with the patient she voice
[2023-06-03 19:57] VITALS: BP 100/71; PULSE 102; RESP 18; TEMP 36.3; O2SAT 100
== END 2023-06-03 20:01 | disposition home or self-care (01) ==
PROVIDERS: Emergency Provider Nurse Practitioner Family
DX: H60.312 Diffuse otitis externa, left ear (principal); F17.210 Nicotine dependence, cigarettes, uncomplicated; J45.909 Unspecified asthma, uncomplicated; Z86.718 Personal history of other venous thrombosis and embolism
CPT/HCPCS: 99213; G0463

== ENCOUNTER 2023-11-06 12:59 | Emergency (ER) | payer OTHER, SELFPAY ==
--- NOTE | ~2023-11-06 | XR_ITS ---
EXAMINATION: XR hand LT min 3V DATE: 11/06/2023 14:01 INDICATION: Left hand and wrist pain post injury TECHNIQUE: 1. Posteroanterior, ulnar deviation, oblique, and lateral views of the left wrist were obtained. 2. Dorsal palmar, oblique and lateral views of the left hand were obtained. COMPARISON: None. FINDINGS: Alignment of the hand and wrist is normal. No fracture identified. Joint spaces are normal. No foc al soft tissue swelling. IMPRESSION: 1. Negative left hand and wrist radiographs. Reviewed, dictated and finalized at location A. ER CONSULTANT
--- NOTE | ~2023-11-06 | US_ITS ---
EXAMINATION: US venous doppler UE LT DATE: 11/06/2023 13:51 INDICATION: Left upper limb pain. TECHNIQUE: Grayscale ultrasound images without and with compression and Doppler ultrasound images of the left upper extremity veins were obtained. COMPARISON: None. FINDINGS: The visualized portions of the left internal jugular vein, subclavian vein, axillary vein, brachial v eins, basilic vein, cephalic vein, radial vein, and ulnar vein are patent. IMPRESSION: 1. No deep venous thrombosis. Reviewed, dictated and finalized at location A. BUILDER
--- NOTE | ~2023-11-06 | XR_ITS ---
EXAMINATION: XR wrist LT min 3V DATE: 11/06/2023 14:01 INDICATION: Left hand and wrist pain post injury TECHNIQUE: 1. Posteroanterior, ulnar deviation, oblique, and lateral views of the left wrist were obtained. 2. Dorsal palmar, oblique and lateral views of the left hand were obtained. COMPARISON: None. FINDINGS: Alignment of the hand and wrist is normal. No fracture identified. Joint spaces are normal. No foc al soft tissue swelling. IMPRESSION: 1. Negative left hand and wrist radiographs. Reviewed, dictated and finalized at location A. WELDER
[2023-11-06 13:01] VITALS: BP 184/71; PULSE 126; RESP 20; TEMP 36.6; O2SAT 100
--- NOTE | 2023-11-06 13:21 | ED.GENADULT ---
HPI - General Adult General Chief complaint: Extremity Problem,Nontraumatic <Mala Resendiz February SENIOR QUALITY CONTROL INSPECTOR - Last Filed: 11/06/23 13:26> Stated complaint: left hand swelling <Mala Resendiz February SENIOR QUALITY CONTROL INSPECTOR - Last Filed: 11/06/23 13:26> Time Seen by Provider: 11/06/23 15:00 <Mala Resendiz February SENIOR QUALITY CONTROL INSPECTOR - Last Filed: 11/06/23 13:26> History of Present Illness HPI narrative: Jerri Banuelos is a 38 y/o female with PMhx of Asthma/ HTN/ DVT - not on any blood thinners. Presents with reports of having severe left hand pain that started at 2230/2300 while playing video games. Pain is localized mostly to the palmar aspect between the first and second phalanx. She states the pain goes through to the top of her hand in the same area as well ROM intact but painful to move / pulses present/ normal cap refill pain is slightly going up to the elbow No hx of known injury/ trauma to her hand <Mala Resendiz February, SENIOR QUALITY CONTROL INSPECTOR - Last Filed: 11/06/23 13:26> Jerri Banuelos is a 38 y/o R hand dominant female with PMhx of Asthma/ HTN/ DVT - not on any blood thinners. Presents with reports of having severe left hand pain and numbness that started at 2230/2300 while playing video games. Pain is localized mostly to the palmar aspect between the first and second phalanx. She states the pain goes through to the top of her hand in the same area as well ROM intact but painful to move / pulses present/ normal cap refill pain is slightly going up to the elbow No hx of known injury/ trauma to her hand. She states the area changed color to blue/purple. No exposure to cold. <Natalie Dean MD - Last Filed: 11/07/23 03:38> Related Data Home medications: Home Medications Medication Instructions Recorded Confirmed loratadine 10 mg capsule 10 mg PO DAILY 06/03/23 06/03/23 <Mala Segundo APRN - Last Filed: 11/06/23 13:26> Allergies/adverse reactions: Allergies Allergy/AdvReac Type Severity Reaction Status Date / Time Iodinated Contrast Media AdvReac Intermediate Nausea and Verified 06/03/23 19:58 Vomiting lactase AdvReac Mild Upset Verified 06/03/23 19:58 stomach latex AdvReac Mild Hives Verified 06/03/23 19:58 Contrast Media AdvReac Intermediate Nausea and Uncoded 06/03/23 19:58 Vomiting Dairy AdvReac Mild Gastrointestinal Uncoded 06/03/23 19:58 Upset <Mala Segundo SENIOR QUALITY CONTROL INSPECTOR - Last Filed: 11/06/23 13:26> PMFSH Past Medical History Medical History: Medical History Asthma Cataract DVT (deep venous thrombosis) Migraine PID (acute pelvic inflammatory disease) Seizure disorder Trichomonas contact, treated <Mala Segundo SENIOR QUALITY CONTROL INSPECTOR - Last Filed: 11/06/23 13:26> Surgical History Surgical History: Surgical History History of appendectomy History of cholecystectomy History of hysterectomy Hx of eye surgery <Mala Segundo APRN - Last Filed: 11/06/23 13:26> Family History Family History: Family History Grandparent Diabetes mellitus Family history of blood dyscrasia Cerebrovascular accident <Mala Segundo APRN - Last Filed: 11/06/23 13:26> Social History Social History: Social History Smoking status: Current every day smoker Tobacco type: cigarettes Second hand tobacco smoke exposure: No Alcohol intake: current Gender identity (if verbalized by the patient): Female <Mala Segundo SENIOR QUALITY CONTROL INSPECTOR - Last Filed: 11/06/23 13:26> Exam Const: General: healthy appearing and alert; No confusion or diaphoretic <Natalie Dean MD - Last Filed: 11/07/23 03:38> Nutritional Appearance: well nourished <Natalie Dean MD - Last Filed: 11/07/23 03:38> Orientation/consciousness: patient oriented x3 <Natalie Dean MD - Last Filed: 11/07/23 03:38> Limitations: no
[2023-11-06] MEDS: ACETAMINOPHEN 500 MG TABLET 1000 MG PO (14:35)
[2023-11-06] MEDS: KETOROLAC 30 MG/ML VIAL (*BKC) IM (14:35)
[2023-11-06] MEDS: CYCLOBENZAPRINE HCL 10 MG TABLET PO (14:35)
== END 2023-11-06 15:40 | disposition home or self-care (01) ==
PROVIDERS: Emergency Provider Student in an Organized Health Care Education/Training Program
DX: M79.642 Pain in left hand (principal); J45.909 Unspecified asthma, uncomplicated; I10 Essential (primary) hypertension; G40.909 Epilepsy, unspecified, not intractable, without status epilepticus; Z86.718 Personal history of other venous thrombosis and embolism; Z90.49 Acquired absence of other specified parts of digestive tract; Z90.710 Acquired absence of both cervix and uterus; F17.210 Nicotine dependence, cigarettes, uncomplicated
CPT/HCPCS: 73110; 73130; 93971; 96372; 99284; A9270; J1885